=== PATIENT | male | born 1950 | race Caucasian/White ===

== ENCOUNTER → 2017-05-30 | Outpatient (CLI) | payer MEDICAID ==
[~2017-05-30] MED LIST: ALLP100T PO; ASP81TEC PO; ATEN25TA PO; CYCL10TA9 PO; FLUT1DIS26 IH; LISI5TAB PO; LOVA20TA2 PO; RT-ALBUTEROL SULF 2.5 MG/3 ML PRE-MIX VIAL INH ONE; RT-ALBUTEROL SULF 2.5 MG/3 ML PRE-MIX VIAL ONE
== END ==
LOC: RAD 11:02
PROVIDERS: ATTEND Internal Medicine Interventional Cardiology
DX: I25.10 Atherosclerotic heart disease of native coronary artery without angina pectoris (principal); I73.9 Peripheral vascular disease, unspecified; E11.9 Type 2 diabetes mellitus without complications; E78.5 Hyperlipidemia, unspecified; I10 Essential (primary) hypertension; R06.02 Shortness of breath; Z72.0 Tobacco use
CPT/HCPCS: 94060; 94726; 94729

== ENCOUNTER → 2017-06-21 | Outpatient (CLI) | payer MEDICAID ==
[~2017-06-21] MED LIST changes: +CATHETER FLUSH 10 ML SYR IV PRN; +REGADENOSON 0.4 MG/5 ML SYR (LEXISCAN) IV ONE; -RT-ALBUTEROL SULF 2.5 MG/3 ML PRE-MIX VIAL INH ONE; -RT-ALBUTEROL SULF 2.5 MG/3 ML PRE-MIX VIAL ONE
[2017-06-21 09:23] VITALS: BP 136/74
== END ==
LOC: CARD 08:03
PROVIDERS: ATTEND Internal Medicine Interventional Cardiology
DX: Z01.810 Encounter for preprocedural cardiovascular examination (principal); R07.89 Other chest pain; I25.10 Atherosclerotic heart disease of native coronary artery without angina pectoris; E11.9 Type 2 diabetes mellitus without complications; E78.5 Hyperlipidemia, unspecified; I10 Essential (primary) hypertension; R06.02 Shortness of breath; Z72.0 Tobacco use
CPT/HCPCS: 78452; 93017

== ENCOUNTER 2017-07-05 09:47 | Day surgery (SDC) | payer MEDICAID ==
[~2017-07-05] VITALS: Ht 160 cm; Wt 118.0 kg
[2017-07-05] VITALS (7 sets, daily range): BP systolic 94–122; BP diastolic 56–79
[~2017-07-05 09:47] MED LIST changes: -CATHETER FLUSH 10 ML SYR IV PRN; -REGADENOSON 0.4 MG/5 ML SYR (LEXISCAN) IV ONE
[2017-07-05] MEDS ORDERED: HEParin (CATH LAB) 2,000 ML IV ONE (09:53)
[2017-07-05] MEDS ORDERED: NS IV 1000 ML 1,000 ML ONE (09:53)
[2017-07-05] MEDS ORDERED: NS IV 1000 ML 1,000 ML IV SCH ×2 (10:00→12:45)
[2017-07-05 10:23] LABS: HEMOGLOBIN 17.1 G/DL (13.3-17.7); MEAN PLATELET VOLUME 11.4 FL (7.4-10.4); RED BLOOD COUNT 5.78 10^6/uL (4.35-5.85); RED CELL DISTRIBUTION WIDTH 13.6 % (10.0-14.5); WHITE BLOOD COUNT 9.2 10^3/uL (4.3-11.0)
[2017-07-05 10:33] LABS: INR 0.9 (0.8-1.4); PROTHROMBIN TIME PATIENT 12.6 SEC (12.2-14.7)
--- NOTE | 2017-07-05 10:35 | Cardiac Procedure Note-CS/ASA ---
Pre-Procedure Note Pre-Op Procedure Note H&P Reviewed The H&P was reviewed, patient examined and no changes noted. Date H&P Reviewed: Jul 05, 2017 Time H&P Reviewed: 10:35 Conscious Sedation Pre-Proced Time Reviewed: 10:35 ASA Class: 3 Airway Mallampati Classification: ([place] appropriate class) I. II. III, IV Lungs Heart ASA score ASA 1: a normal healthy patient ASA 2: a patient with a mild systemic disease (mid diabetes, controlled hypertension, obesity ASA 3: a patient with a severe systemic disease that limits activity (angina , COPD, prior Myocardial infarction) ASA 4: a patient with an incapacitating disease that is a constant threat to life (CHF, renal failure) ASA 5: a moribund patient not expected to survive 24 hrs. (ruptured aneurysm) ASA 6: a declared brain patient whose organs are being harvested. For emergent operations, add the letter E after the classification Grade 1 Sedation Plan: Analgesia, Amnesia, Plan communicated to team members, Discussed options with patient/fam, Discussed risks with patient/fam Note The patient is an appropriate candidate to undergo the planned procedure, sedation, and anesthesia. The patient immediately re-assessed prior to indication. Pablo COLLIER MD Jul 05, 2017 10:35 am
[2017-07-05 10:42] LABS: ALANINE AMINOTRANSFERASE 27 U/L (0-55); ALBUMIN 4.6 GM/DL (3.2-4.5); ALKALINE PHOSPHATASE 96 U/L (40-136); BILIRUBIN,TOTAL 0.6 MG/DL (0.1-1.0); BUN/CREATININE RATIO 18; CALCIUM 9.7 MG/DL (8.5-10.1); CARBON DIOXIDE 28 MMOL/L (21-32); CHLORIDE 98 MMOL/L (98-107); CREATININE SERUM 0.85 MG/DL (0.60-1.30); GFR ESTIMATED > 60; GLUCOSE 245 MG/DL (70-105); POTASSIUM 4.5 MMOL/L (3.6-5.0); SODIUM 135 MMOL/L (135-145)
[2017-07-05] MEDS ORDERED: INFLUENZA TRIvalent 2017-2018 0.5 ML/45 MCG SYR IM ONE (10:45)
[2017-07-05] MEDS ORDERED: LIDOCAINE 1% INJ 50 ML (XYLOCAINE) VIAL ONE (11:15)
[2017-07-05] MEDS ORDERED: MIDAZOLAM 5 MG/5 ML (VERSED) VIAL ONE (11:20)
[2017-07-05] MEDS ORDERED: fentaNYL INJECTION 100 MCG/2 ML AMP ONE (11:20)
[2017-07-05] MEDS ORDERED: HEParin 1000 UNIT/ML (10ML VIAL) FOR BOLUS ONE (11:52)
[2017-07-05] MEDS ORDERED: ADENOSINE 3 MG/1 ML (ADENOSCAN) 30ML VIAL IV ONE (11:53)
[2017-07-05] MEDS ORDERED: METO100T12 PO (11:53)
[2017-07-05] MEDS ORDERED: METF500T4 PO (11:54)
[2017-07-05] MEDS ORDERED: BUPR-168 PO (11:54)
[2017-07-05] MEDS ORDERED: OMEP20TA7 PO (11:55)
[2017-07-05] MEDS ORDERED: SIMV40TA4 PO (11:55)
[2017-07-05] MEDS ORDERED: LORA10TA7 PO (11:56)
[2017-07-05] MEDS ORDERED: LISI40TA PO (11:57)
--- NOTE | 2017-07-05 12:44 | Coronary Angiography Report ---
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 HISTORY: this is a 67-year-old gentleman with history of diabetes who presents with chest pain. Nuclear stress test showed evidence of inferior ischemia.Therefore, the patient was scheduled for coronary angiography. PROCEDURES PERFORMED: 1.Coronary angiography. 2.Left heart catheterization. 3. Aortic arch angiography. 4. FFR of ostial LAD. COMPLICATIONS: None. SPECIMENS: None. ESTIMATED BLOOD LOSS: 10 mL ANESTHESIA: Conscious sedation ANTICOAGULATION: IV heparin CONTRAST: 175 mL. FLUOROSCOPY: 8.8 minutes. FLOUROSCOPY DOSE: 1182 mgy. PROCEDURE DETAILS: The patient is a 67 male and was brought to the cardiac catheterization technologist after informed consent was taken. All the risks and complications were explained in detail; this included the risk of bleeding, vascular damage, stroke , GA and even . The patient was draped and prepped in the usual sterile fashion. abnormal Riley's test and therefore Access was gained in the right femoral artery with a 5 Azeri sheath. Coronary angiography and left heart catheterization was performed with the JR4, JL4, pigtail catheter. Aortic arch angiography was performed with a pigtail catheter. FINDINGS: 1.Left main: patent. 2.LAD: moderate ostial LAD stenosis. Stenosis severity 40-50 percent. Transapical vessel. 3.Left circumflex artery: patent. 4.RCA: chronic total occlusion of mid RCA with distal reconstitution. Long occlusive segment. Right to right and [id number] collaterals. 5.Left heart catheterization: aortic pressure 97/63 mmHg. LV pressure 67/16 mmHg. LVEDP 15 mmHg. Normal LV function with no wall motion abnormalities. There is no gradient across the aortic valve. 6. Aortic arch angiography: No evidence of aneurysm or dissection. Normal proximal segments of the great arteries included brachiocephalic artery, left common carotid artery and left subclavian artery. Recommendations: FFR of the ostial LAD is recommended. FFR details: We used the same diagnostic catheter JL4 5 Azeri, IV heparin for anticoagulation and pressure wire. The lesion in the ostium of the LAD was easily crossed with a pressure wire. Adenosine was started at 140 g per KG per minute. Lowest FFR was 0.94. This was done twice. This is normal therefore no intervention is required. The wire was taken out and post angiography showed no vascular complication. Patient tolerated the procedure well and did not have any complication. 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 Moderate ostial LAD stenosis which is negative by FFR. Secondary prevention measures for CAD. I will discuss with the patient about CRYSTAL ATTACHER PCI. Keira Karimi MD, FACP, FACC, [facility] Interventional Cardiology Pablo KARIMI MD Jul 05, 2017 12:44 pm
[2017-07-05] MEDS ORDERED: PATIENT MAY USE OWN MEDS, ALL PO SCH (12:45)
--- NOTE | 2017-07-05 12:48 | Discharge Inst-Post CATH ---
Discharge Inst-CATH Post Cardiac Cath D/C Inst Follow Up/Plan Dr Karimi in 2 weeks CARDIAC CATH DISCHARGE INSTRUCTIONS *Hold Metformin for 48 hours post heart cath. ACTIVITY * Go Home directly and rest. * Limit activity of the leg (or wrist if it was used) for 7 days including aerobics, swimming, jogging, bicycling, etc. * Restrict stair-climbing for 7 days if possible, if not, climb up with your non -cath leg, then bring together on the same step. * Avoid lifting, pushing, pulling or excessive movement of the affected extremity for 7 days. * Customary sexual activity may be resumed after 2 days-use caution not to use a position that strains or causes pain to the affected extremity. * No driving for 24 hours. * NO SMOKING. * Avoid straining for bowel movements for 7 days. * Gentle walking on level ground is allowed. * Returning to work will depend on the type of procedure and the results. Your doctor will discuss this with you. CALL YOUR DOCTOR FOR ANY OF THE FOLLOWING: *If bleeding from the puncture site occurs- Apply gentle pressure to site with clean cloth and call your doctor or EMS. * If a knot or lump forms under the skin, increases in size, or causes pain. * If bruising appears to be worsening or moving further down your leg instead of disappearing. * Temperature above 101 F. CARE OF YOUR GROIN INCISION; * Bruising or purple discoloration of the skin near the puncture site is common. * You may shower only, no bathtub bathing for 5 days. Be careful to avoid slipping as your leg may feel stiff. * If a closure device was used on your femoral artery, please see the attached guide regarding care of the device and your leg. * REMOVE the dressing from your groin the next day after your procedure in the shower. CARE OF YOUR WRIST INCISION; * Bruising or purple discoloration of the skin near the puncture site is common. * You may shower. * DO NOT submerge wrist. * Remove dressing in 24 hours. Pablo KARIMI MD Jul 05, 2017 12:48 pm
--- NOTE | 2017-07-05 12:58 | Cardiology Discharge Summary ---
Diagnosis/Chief Complaint Date of Admission 07/05/2017 Date of Discharge 07/05/2017 Admission Diagnosis Chest pain, abnormal nuclear stress test. Final/Discharge Diagnosis chronic total occlusion of mid RCA, moderate ostial LAD disease. Chief Complaint/HPI Chief Complaint/HPI this is a 67-year-old gentleman with history of diabetes, CAD who presented with chest pain. Nuclear stress test showed evidence of inferior ischemia. Coronary angiography was recommended. 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 Moderate ostial LAD stenosis which was negative by FFR. Discharge Physical Examination normal cardiovascular and respiratory examination. Hospital Course unremarkable Pending Labs Laboratory Tests 07/05/17 10:15: White Blood Count 9.2, Red Blood Count 5.78, Hemoglobin 17.1, Hematocrit 50, Mean Corpuscular Volume 87, Mean Corpuscular Hemoglobin 30, Mean Corpuscular Hemoglobin Concent 34, Red Cell Distribution Width 13.6, Platelet Count 243, Mean Platelet Volume 11.4, Prothrombin Time 12.6, INR Comment 0.9, Activated Partial Thromboplast Time 29, Sodium Level 135, Potassium Level 4.5, Chloride Level 98, Carbon Dioxide Level 28, Anion Gap 9, Blood Urea Nitrogen 15, Creatinine 0.85, Estimat Glomerular Filtration Rate > 60, BUN/Creatinine Ratio 18, Glucose Level 245, Calcium Level 9.7, Total Bilirubin 0.6, Aspartate Amino Transf (AST/SGOT) 18, Alanine Aminotransferase (ALT/SGPT) 27, Alkaline Phosphatase 96, Total Protein 8.0, Albumin 4.6 Discussion & Recommendations Discussion discharge instructions were given to the patient and family. I discussed at length with the patient about results of coronary angiogram. We will discuss about the need of TRIPE COOKER PCI. If required, he will be referred to Dr. Morse at [facility]. Follow up appt.: Dr. Karimi in 2 weeks. Dicharge Diet: Cardiac Diet Activity as Tolerated: Yes Home Medications Reviewed patient Home Medication Reconciliation performed by pharmacy medication reconciliations studio technician and/or nursing. Patients Allergies have been reviewed. Discharge Home Medications: Reviewed and agree with Discharge Medication list on patient's Discharge Instruction sheet Condition at discharge stable. Instructions to patient/family Dr Karimi in 2 weeks Pablo KARIMI MD Jul 05, 2017 12:58 pm
[2017-07-06] MEDS ORDERED: ASPIRIN E.C. 81 MG (ECOTRIN) TAB PO SCH (09:00)
== END 2017-07-05 15:00 | disposition home or self-care (01) ==
LOC: CATH 09:47 → SURG 12:47 → CATH 15:00
PROVIDERS: ATTEND Internal Medicine Interventional Cardiology
DX: I25.10 Atherosclerotic heart disease of native coronary artery without angina pectoris (principal); I25.82 Chronic total occlusion of coronary artery; E11.9 Type 2 diabetes mellitus without complications; I10 Essential (primary) hypertension; E78.5 Hyperlipidemia, unspecified; J45.909 Unspecified asthma, uncomplicated; J44.9 Chronic obstructive pulmonary disease, unspecified; F17.210 Nicotine dependence, cigarettes, uncomplicated; Z79.82 Long term (current) use of aspirin; Z79.4 Long term (current) use of insulin; Z79.899 Other long term (current) drug therapy
CPT/HCPCS: 36221; 36415; 80053; 85027; 85610; 85730; 87081; 93458; 93571

== ENCOUNTER → 2018-06-06 | Outpatient (CLI) | payer MEDICAID ==
[~2018-06-06] MED LIST changes: +BUPR-168 PO; +LISI40TA PO; +LORA10TA7 PO; +METF-397 PO; +METO100T12 PO; +OMEP20TA7 PO; +SIMV40TA4 PO
== END ==
LOC: PREOP 05:40
PROVIDERS: ATTEND Surgery
DX: Z01.818 Encounter for other preprocedural examination (principal)

== ENCOUNTER 2018-06-12 08:41 | Day surgery (SDC) | payer MEDICAID ==
[~2018-06-12] VITALS: Ht 160 cm; Wt 118.0 kg
[2018-06-12] MEDS ORDERED: NS IV 500 ML 500 ML ONE ×2 (08:52→11:23)
--- OUTSIDE RECORDS SUMMARY | 2018-06-12 08:53 | XMS REPORT | Continuity of Care Document ---
Author Author [facility] Organization [facility] Address Unknown Phone Unavailable Allergies Active Description Code Type Severity Reaction Onset Reported/Identified Relationship to Patient Clinical Status Yes SULFAMETHOXAZOLE-TRIMETHOPRIM SULFAMETHOXAZOLE-TRI MODERATE Yes SULFAMETHOXAZOLE-TRIMETHOPRIM MODERATE OTHER Yes No Allergy Information Available [id number] Drug Allergy Unknown N/A 2011 Yes SULFA SULFA Unknown N/A 09/09/2015 Yes Sulfa (Sulfonamide Antibiotics) [id number] Drug Allergy Unknown N/A 2017 Medications Medication Packaging Start Date Stop Date Route Dosage Sig PROMETHAZINE VIAL INJ 25 MG/CC (PHENERGAN VIAL) MG 04/25/2016 04/25/2016 PRN ONCE MEPERIDINE SYRINGE INJ 50 MG/CC (DEMEROL SYRINGE) MG 04/25/2016 04/25/2016 PRN ONCE Problems Date Dx Coded Attending Type Code Diagnosis Diagnosed By 06/16/2011 Ot 272.4 HYPERLIPIDEMIA NEC/NOS 06/16/2011 Ot 278.00 OBESITY, NOS 06/16/2011 Ot 327.23 OBSTRUCTIVE SLEEP APNEA (ADULT) (PEDIATR 06/16/2011 Ot 401.9 HYPERTENSION NOS 06/16/2011 Ot 411.1 INTERMED CORONARY SYND 06/16/2011 Ot 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 06/16/2011 Ot V85.41 BODY MASS INDEX 40.0-44.9, ADULT 09/09/2015 SYD GASTON DO Ot F17.210 NICOTINE DEPENDENCE, CIGARETTES, UNCOMPL 09/09/2015 SYD GASTON DO Ot R42 DIZZINESS AND GIDDINESS 09/10/2015 SYD GASTON DO Ot F17.210 NICOTINE DEPENDENCE, CIGARETTES, UNCOMPL 09/10/2015 SYD GASTON DO Ot R42 DIZZINESS AND GIDDINESS 04/25/2016 Isacc Salas 959.2 OTHER AND UNSPECIFIED INJURY TO SHOULDER AND UPPER ARM 04/25/2016 Isacc Salas S46.201A UNSP INJURY OF MUSC/FASC/TEND PRT BICEPS, RIGHT ARM, INIT 05/05/2016 Jayson, Beryl A 724.5 BACKACHE, UNSPECIFIED 05/05/2016 Beryl Tyler 724.6 DISORDERS OF SACRUM 05/05/2016 Jayson, Beryl W 781.0 ABNORMAL INVOLUNTARY MOVEMENTS 05/05/2016 Jayson, Beryl Steward M53.3 SACROCOCCYGEAL DISORDERS, NOT ELSEWHERE CLASSIFIED 05/05/2016 Beryl Tyler M54.9 DORSALGIA, UNSPECIFIED 05/05/2016 Beryl Tyler M62.838 OTHER MUSCLE SPASM 12/21/2016 Jayson, Beryl Steward 682.3 CELLULITIS AND ABSCESS OF UPPER ARM AND FOREARM 12/21/2016 Jayson, Beryl W 912.4 INSECT BITE, NONVENOMOUS OF SHOULDER AND UPPER ARM, WITHOUT MENTION OF INFECTION 12/21/2016 Jayson, Beryl W L02.413 CUTANEOUS ABSCESS OF RIGHT UPPER LIMB 12/21/2016 Jayson, Beryl W S40.861A INSECT BITE (NONVENOMOUS) OF RIGHT UPPER ARM, INITIAL ENCOUNTER 12/21/2016 Beryl Tyler 682.3 CELLULITIS AND ABSCESS OF UPPER ARM AND FOREARM 12/21/2016 Jayson, Beryl W 912.4 INSECT BITE, NONVENOMOUS OF SHOULDER AND UPPER ARM, WITHOUT MENTION OF INFECTION 12/21/2016 Jayson, Beryl W L02.413 CUTANEOUS ABSCESS OF RIGHT UPPER LIMB 12/21/2016 Beryl Tyler S40.861A INSECT BITE (NONVENOMOUS) OF RIGHT UPPER ARM, INITIAL ENCOUNTER 04/18/2017 Beryl Tyler W 250.80 DIABETES MELLITUS WITH OTHER SPECIFIED MANIFESTATIONS, TYPE II OR UNSPECIFIED TYPE, NOT STATED UNCONTROLLED 04/18/2017 Beryl Tyler E11.65 TYPE 2 DIABETES MELLITUS WITH HYPERGLYCEMIA 04/18/2017 Jayson, Beryl W 250.80 DIABETES MELLITUS WITH OTHER SPECIFIED MANIFESTATIONS, TYPE II OR UNSPECIFIED TYPE, NOT STATED UNCONTROLLED 04/18/2017 Beryl Tyler W E11.65 TYPE 2 DIABETES MELLITUS WITH HYPERGLYCEMIA 04/18/2017 Beryl Tyler W 250.80 DIABETES MELLITUS WITH OTHER SPECIFIED MANIFESTATIONS, TYPE II OR UNSPECIFIED TYPE, NOT STATED UNCONTROLLED 04/18/2017 Tyler, Beryl W E11.65 TYPE 2 DIABETES MELLITUS WITH HYPERGLYCEMIA 04/18/2017 Tyler, RadhaYonu W 250.80 DIABETES MELLITUS WITH OTHER SPECIFIED MANIFESTATIONS, TYPE II OR UNSPECIFIED TYPE, NOT STATED UNCONTROLLED 04/18/2017 Tyler, Beryl W E11.65 TYPE 2 DIABETES MELLITUS WITH HYPERGLYCEMIA 04/27/2017 Tyler, RadhaYonu A 250.80 DIABETES MELLITUS WITH OTHER SPECIFIED MANIFESTATIONS, TYPE II OR UNSPECIFIED TYPE, NOT STATED UNCONTROLLED 04/27/2017, Beryl A E11.65 TYPE 2 DIABETES MELLITUS WITH HYPERGLYCEMIA 04/27/2017 Tyler, Radha-Bro A 250.80 DIABETES MELLITUS WITH OTHER SPECIFIED MANIFESTATIONS, TYPE II OR UNSPECIFIED TYPE, NOT STATED UNCONTROLLED 04/27/2017 Tyler, Beryl W 682.2 CELLULITIS AND ABSCESS OF TRUNK 04/27/2017 Tyler, Beryl W 911.4 INSECT BITE, NONVENOMOUS OF TRUNK, WITHOUT MENTION OF INFECTION 04/27/2017 Tyler, Beryl A E11.65 TYPE 2 DIABETES MELLITUS WITH HYPERGLYCEMIA 04/27/2017 Tyler, Beryl W L03.311 CELLULITIS OF ABDOMINAL WALL 04/27/2017 Tyler, Beryl Steward S30.861A INSECT BITE (NONVENOMOUS) OF ABDOMINAL WALL, INITIAL ENCOUNTER 04/27/2017 Sergio TylerBro A 250.80 DIABETES MELLITUS WITH OTHER SPECIFIED MANIFESTATIONS, TYPE II OR UNSPECIFIED TYPE, NOT STATED UNCONTROLLED 04/27/2017 Tyler, Beryl Steward 682.2 CELLULITIS AND ABSCESS OF TRUNK 04/27/2017 Tyler, Beryl W 911.4 INSECT BITE, NONVENOMOUS OF TRUNK, WITHOUT MENTION OF INFECTION 04/27/2017 Beryl Tyler E11.65 TYPE 2 DIABETES MELLITUS WITH HYPERGLYCEMIA 04/27/2017 Jayson, Beryl W L03.311 CELLULITIS OF ABDOMINAL WALL 04/27/2017 Beryl Tyler W S30.861A INSECT BITE (NONVENOMOUS) OF ABDOMINAL WALL, INITIAL ENCOUNTER 04/29/2017 Beryl Tyler W 719.46 PAIN IN JOINT INVOLVING LOWER LEG 04/29/2017 Jayson, Beryl W 844.1 SPRAIN OF MEDIAL COLLATERAL LIGAMENT OF KNEE 04/29/2017 Beryl Tyler W M25.562 PAIN IN LEFT KNEE 04/29/2017 Beryl Tyler W S83.412A SPRAIN OF MEDIAL COLLATERAL LIGAMENT OF LEFT KNEE, INITIAL ENCOUNTER 04/29/2017 Beryl Tyler W 719.46 PAIN IN JOINT INVOLVING LOWER LEG 04/29/2017 Jayson, Beryl W 844.1 SPRAIN OF MEDIAL COLLATERAL LIGAMENT OF KNEE 04/29/2017 Jayson, Beryl W M25.562 PAIN IN LEFT KNEE 04/29/2017 Beryl Tyler W S83.412A SPRAIN OF MEDIAL COLLATERAL LIGAMENT OF LEFT KNEE, INITIAL ENCOUNTER 05/07/2017 ANGELES ROMERO 844.1 SPRAIN OF MEDIAL COLLATERAL LIGAMENT OF KNEE 05/07/2017 ANGELES ROMERO S83.412A SPRAIN OF MEDIAL COLLATERAL LIGAMENT OF LEFT KNEE, INIT 06/11/2017 Pablo COLLIER MD Ot E11.9 TYPE 2 DIABETES MELLITUS WITHOUT COMPLIC 06/11/2017 Pablo COLLIER MD Ot E78.5 HYPERLIPIDEMIA, UNSPECIFIED 06/11/2017 Pablo COLLIER MD Ot I10 ESSENTIAL (PRIMARY) HYPERTENSION 06/11/2017 Pablo COLLIER MD Ot 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 06/11/2017 Pablo COLLIER MD Ot I73.9 PERIPHERAL VASCULAR DISEASE, UNSPECIFIED 06/11/2017 Pablo COLLIER MD Ot R06.02 SHORTNESS OF BREATH 06/11/2017 Pablo COLLIER MD Ot Z72.0 TOBACCO USE 06/12/2017 Pablo COLLIER MD Ot E11.9 TYPE 2 DIABETES MELLITUS WITHOUT COMPLIC 06/12/2017 Pablo COLLIER MD Ot E78.5 HYPERLIPIDEMIA, UNSPECIFIED 06/12/2017 Pablo COLLIER MD Ot I10 ESSENTIAL (PRIMARY) HYPERTENSION 06/12/2017 Pablo COLLIER MD Ot 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 06/12/2017 NANDO HERRERA, M JOANNA Ot I73.9 PERIPHERAL VASCULAR DISEASE, UNSPECIFIED 06/12/2017 Pablo COLLIER MD Ot R06.02 SHORTNESS OF BREATH 06/12/2017 Pablo COLLIER MD Ot Z72.0 TOBACCO USE 06/20/2017 NANDO HERRERA, Pablo MARSHALL Ot E11.9 TYPE 2 DIABETES MELLITUS WITHOUT COMPLIC 06/20/2017 NANDO HERRERA, Pablo MARSHALL Ot E78.5 HYPERLIPIDEMIA, UNSPECIFIED 06/20/2017 NANDO HERRERA, M JOANNA Ot I10 ESSENTIAL (PRIMARY) HYPERTENSION 06/20/2017 NANDO HERRERA, Pablo MARSHALL Ot 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 06/20/2017 Pablo COLLIER MD Ot I73.9 PERIPHERAL VASCULAR DISEASE, UNSPECIFIED 06/20/2017 Pablo COLLIER MD Ot R06.02 SHORTNESS OF BREATH 06/20/2017 Pablo COLLIER MD Ot Z72.0 TOBACCO USE 06/21/2017 Pablo COLLIER MD Ot E11.9 TYPE 2 DIABETES MELLITUS WITHOUT COMPLIC 06/21/2017 Pablo COLLIER MD Ot E78.5 HYPERLIPIDEMIA, UNSPECIFIED 06/21/2017 Pablo COLLIER MD Ot I10 ESSENTIAL (PRIMARY) HYPERTENSION 06/21/2017 NANDO HERRERA, Pablo MARSHALL Ot 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 06/21/2017 Pablo COLLIER MD Ot I73.9 PERIPHERAL VASCULAR DISEASE, UNSPECIFIED 06/21/2017 Pablo COLLIER MD Ot R06.02 SHORTNESS OF BREATH 06/21/2017 NANDO HERRERA M JOANNA Ot Z72.0 TOBACCO USE 07/05/2017 NANDO HERRERA, Pablo MARSHALL Ot E11.9 TYPE 2 DIABETES MELLITUS WITHOUT COMPLIC 07/05/2017 Pablo COLLIER MD Ot E78.5 HYPERLIPIDEMIA, UNSPECIFIED 07/05/2017 Pablo COLLIER MD Ot F17.210 NICOTINE DEPENDENCE, CIGARETTES, UNCOMPL 07/05/2017 Pablo COLLIER MD Ot I10 ESSENTIAL (PRIMARY) HYPERTENSION 07/05/2017 Pablo COLLIER MD Ot 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 07/05/2017 Pablo COLLIER MD Ot 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 07/05/2017 Pablo COLLIER MD Ot J44.9 CHRONIC OBSTRUCTIVE PULMONARY DISEASE, U 07/05/2017 Pablo COLLIER MD Ot J45.909 UNSPECIFIED ASTHMA, UNCOMPLICATED 07/05/2017 Pablo COLLIER MD Ot Z79.4 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 OPERATOR (CURRENT) USE OF INSULIN 07/05/2017 Pablo COLLIER MD Ot Z79.82 [facility] (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 07/05/2017 Pablo COLLIER MD Ot Z79.899 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 THERAPY 07/06/2017 Pablo COLLIER MD Ot E11.9 TYPE 2 DIABETES MELLITUS WITHOUT COMPLIC 07/06/2017 Pablo COLLIER MD Ot E78.5 HYPERLIPIDEMIA, UNSPECIFIED 07/06/2017 Pablo COLLIER MD Ot F17.210 NICOTINE DEPENDENCE, CIGARETTES, UNCOMPL 07/06/2017 Pablo COLLIER MD Ot I10 ESSENTIAL (PRIMARY) HYPERTENSION 07/06/2017 Pablo COLLIER MD Ot 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 07/06/2017 Pablo COLLIER MD Ot 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 07/06/2017 Pablo COLLIER MD Ot J44.9 CHRONIC OBSTRUCTIVE PULMONARY DISEASE, U 07/06/2017 Pablo COLLIER MD Ot J45.909 UNSPECIFIED ASTHMA, UNCOMPLICATED 07/06/2017 Pablo COLLIER MD Ot Z79.4 [facility] (CURRENT) USE OF INSULIN 07/06/2017 Pablo COLLIER MD Ot Z79.82 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 (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 07/06/2017 Pablo COLLIER MD Ot Z79.899 OTHER [facility] (CURRENT) DRUG THERAPY 07/06/2017 Pablo COLLIER MD Ot E11.9 TYPE 2 DIABETES MELLITUS WITHOUT COMPLIC 07/06/2017 Pablo COLLIER MD, Ot E78.5 HYPERLIPIDEMIA, UNSPECIFIED 07/06/2017 Pablo COLLIER MD Ot F17.210 NICOTINE DEPENDENCE, CIGARETTES, UNCOMPL 07/06/2017 Pablo COLLIER MD, Ot I10 ESSENTIAL (PRIMARY) HYPERTENSION 07/06/2017 Pablo COLLIER MD, Ot 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 07/06/2017 Pablo COLLIER MD, Ot 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 07/06/2017 Pablo COLLIER MD, Ot J44.9 CHRONIC OBSTRUCTIVE PULMONARY DISEASE, U 07/06/2017 Pablo COLLIER MD, Ot J45.909 UNSPECIFIED ASTHMA, UNCOMPLICATED 07/06/2017 Pablo COLLIER MD, Ot Z79.4 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 (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) USE OF INSULIN 07/06/2017 Pablo COLLIER MD Ot Z79.82 [facility] (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 07/06/2017 Pablo COLLIER MD, Ot Z79.899 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 THERAPY 09/12/2017 Beryl Tyler W 682.1 CELLULITIS AND ABSCESS OF NECK 09/12/2017 Beryl Tyler W L02.11 CUTANEOUS ABSCESS OF NECK 09/12/2017 Beryl Tyler W 682.1 CELLULITIS AND ABSCESS OF NECK 09/12/2017 Beryl Tyler W L02.11 CUTANEOUS ABSCESS OF NECK 09/12/2017 Beryl Tyler W 682.1 CELLULITIS AND ABSCESS OF NECK 09/12/2017 Beryl Tyler W L02.11 CUTANEOUS ABSCESS OF NECK 09/25/2017 Beryl Tyler W 250.80 DIABETES MELLITUS WITH OTHER SPECIFIED MANIFESTATIONS, TYPE II OR UNSPECIFIED TYPE, NOT STATED UNCONTROLLED 09/25/2017 Beryl Tyler W 726.64 PATELLAR TENDINITIS 09/25/2017 Tyler, Radha-Bro W E11.65 TYPE 2 DIABETES MELLITUS WITH HYPERGLYCEMIA 09/25/2017 Tyler, Letiu W M76.52 PATELLAR TENDINITIS, LEFT KNEE 09/25/2017 Tyler, Letiu W S83.242D OTHER TEAR OF MEDIAL MENISCUS, CURRENT INJURY, LEFT KNEE, SUBSEQUENT ENCOUNTER 09/25/2017 Jayson, Letiu W V58.89 ENCOUNTER FOR OTHER SPECIFIED AFTERCARE 09/26/2017 Jayson, Radha-Bro W 250.80 DIABETES MELLITUS WITH OTHER SPECIFIED MANIFESTATIONS, TYPE II OR UNSPECIFIED TYPE, NOT STATED UNCONTROLLED 09/26/2017 Tyler, RadhaJacksonu W 726.64 PATELLAR TENDINITIS 09/26/2017 Tyler, Radha-Bro W E11.65 TYPE 2 DIABETES MELLITUS WITH HYPERGLYCEMIA 09/26/2017 Tyler, RadhaEnocBro W M76.52 PATELLAR TENDINITIS, LEFT KNEE 09/26/2017 Jayson, Letiu W S83.242D OTHER TEAR OF MEDIAL MENISCUS, CURRENT INJURY, LEFT KNEE, SUBSEQUENT ENCOUNTER 09/26/2017 Tyler, Radha-Bro W V58.89 ENCOUNTER FOR OTHER SPECIFIED AFTERCARE 12/19/2017 Tyler, Radha-Bro W 847.0 NECK SPRAIN 12/19/2017 Tyler, Radha-Bro W S16.1XXA STRAIN OF MUSCLE, FASCIA AND TENDON AT NECK LEVEL, INITIAL ENCOUNTER 12/19/2017 Tyler, Radha-Bro W 847.0 NECK SPRAIN 12/19/2017 Tyler, Radha-Bro W S16.1XXA STRAIN OF MUSCLE, FASCIA AND TENDON AT NECK LEVEL, INITIAL ENCOUNTER 02/20/2018 Tyler, RadhaHimanshu W 250.00 DIABETES MELLITUS WITHOUT MENTION OF COMPLICATION, TYPE II OR UNSPECIFIED TYPE, NOT STATED UNCONTROLLED 02/20/2018 Tyler, Letiu W 272.4 OTHER AND UNSPECIFIED HYPERLIPIDEMIA 02/20/2018 Tyler, Radha-Bro W 782.3 EDEMA 02/20/2018 Tyler, Letiu W 786.2 COUGH 02/20/2018 Tyler, Beryl W E11.9 TYPE 2 DIABETES MELLITUS WITHOUT COMPLICATIONS 02/20/2018 Tyler, Beryl W E78.5 HYPERLIPIDEMIA, UNSPECIFIED 02/20/2018 Tyler, Letiu W R05 COUGH 02/20/2018 Tyler, Radha-Bro W R60.0 LOCALIZED EDEMA 02/20/2018 Tyler, Radha-Bro W 250.00 DIABETES MELLITUS WITHOUT MENTION OF COMPLICATION, TYPE II OR UNSPECIFIED TYPE, NOT STATED UNCONTROLLED 02/20/2018 Tyler, Radha-Bro W 272.4 OTHER AND UNSPECIFIED HYPERLIPIDEMIA 02/20/2018 Tyler, Radha-Bro W 782.3 EDEMA 02/20/2018 Tyler, Radha-Bro W 786.2 COUGH 02/20/2018 Tyler, Radha-Bro W E11.9 TYPE 2 DIABETES MELLITUS WITHOUT COMPLICATIONS 02/20/2018 Tyler, Radha-Bro W E78.5 HYPERLIPIDEMIA, UNSPECIFIED 02/20/2018 Tyler, Radha-Bro W R05 COUGH 02/20/2018 Tyler, Radha-Bro W R60.0 LOCALIZED EDEMA 04/19/2018 Tyler, Radha-Bro W 550.91 RECURRENT UNILATERAL OR UNSPECIFIED INGUINAL HERNIA, WITHOUT MENTION OF OBSTRUCTION OR GANGRENE 04/19/2018 Tyler, Radha-Bro W K40.91 UNILATERAL INGUINAL HERNIA, WITHOUT OBSTRUCTION OR GANGRENE, RECURRENT 04/19/2018 Tyler, Radha-Bro W 550.91 RECURRENT UNILATERAL OR UNSPECIFIED INGUINAL HERNIA, WITHOUT MENTION OF OBSTRUCTION OR GANGRENE 04/19/2018 Tyler, Radha-Bro W K40.91 UNILATERAL INGUINAL HERNIA, WITHOUT OBSTRUCTION OR GANGRENE, RECURRENT 05/22/2018 Tyler, Radha-Bro W 250.00 DIABETES MELLITUS WITHOUT MENTION OF COMPLICATION, TYPE II OR UNSPECIFIED TYPE, NOT STATED UNCONTROLLED 05/22/2018 Tyler, Radha-Bro W 466.0 ACUTE BRONCHITIS 05/22/2018 Tyler, Radha-Bro W 724.2 LUMBAGO 05/22/2018 Tyler, Radha-Bro W 724.8 OTHER SYMPTOMS REFERABLE TO BACK 05/22/2018 Tyler, Radha-Bro W E11.9 TYPE 2 DIABETES MELLITUS WITHOUT COMPLICATIONS 05/22/2018 Tyler, Radha-Bro W J20.9 ACUTE BRONCHITIS, UNSPECIFIED 05/22/2018 Tyler, Radha-Bro W M54.5 LOW BACK PAIN 05/22/2018 Tyler, Radha-Bro W M62.830 MUSCLE SPASM OF BACK 05/23/2018 Tyler, Radha-Bro W 250.00 DIABETES MELLITUS WITHOUT MENTION OF COMPLICATION, TYPE II OR UNSPECIFIED TYPE, NOT STATED UNCONTROLLED 05/23/2018 Tyler, Radha-Bro W 466.0 ACUTE BRONCHITIS 05/23/2018 Tyler, Letiu W 724.2 LUMBAGO 05/23/2018 Tyler, Radha-Bro W 724.8 OTHER SYMPTOMS REFERABLE TO BACK 05/23/2018 Tyler, Letiu W E11.9 TYPE 2 DIABETES MELLITUS WITHOUT COMPLICATIONS 05/23/2018 Tyler, Letiu W J20.9 ACUTE BRONCHITIS, UNSPECIFIED 05/23/2018 Tyler, Letiu W M54.5 LOW BACK PAIN 05/23/2018 Tyler, Radha-Bro W M62.830 MUSCLE SPASM OF BACK 06/04/2018 Tyler, Radha-Bro W 250.80 DIABETES MELLITUS WITH OTHER SPECIFIED MANIFESTATIONS, TYPE II OR UNSPECIFIED TYPE, NOT STATED UNCONTROLLED 06/04/2018, Radha-Bro W 787.20 DYSPHAGIA, UNSPECIFIED 06/04/2018 Tyler, Letiu W E11.65 TYPE 2 DIABETES MELLITUS WITH HYPERGLYCEMIA 06/04/2018 Tyler, Letiu W R13.10 DYSPHAGIA, UNSPECIFIED 06/04/2018, Radha-Bro W 250.80 DIABETES MELLITUS WITH OTHER SPECIFIED MANIFESTATIONS, TYPE II OR UNSPECIFIED TYPE, NOT STATED UNCONTROLLED 06/04/2018, Letiu W 787.20 DYSPHAGIA, UNSPECIFIED 06/04/2018, Radha-Bro W E11.65 TYPE 2 DIABETES MELLITUS WITH HYPERGLYCEMIA 06/04/2018 Tyler, Letiu W R13.10 DYSPHAGIA, UNSPECIFIED 06/06/2018 NANDO HERRERA, M JOANNA Ot E11.9 TYPE 2 DIABETES MELLITUS WITHOUT COMPLIC 06/06/2018 NANDO HERRERA, M JOANNA Ot E78.5 HYPERLIPIDEMIA, UNSPECIFIED 06/06/2018 NANDO HERRERA M JOANNA Ot I10 ESSENTIAL (PRIMARY) HYPERTENSION 06/06/2018 NANDO HERRERA M JOANNA Odell 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 06/06/2018 Pablo COLLIER MD Ot R06.02 SHORTNESS OF BREATH 06/06/2018 Pablo COLLIER MD, Ot R07.89 OTHER CHEST PAIN 06/06/2018 Pablo COLLIER MD Ot Z01.810 ENCOUNTER FOR PREPROCEDURAL CARDIOVASCUL 06/06/2018 Pablo COLLIER MD Ot Z72.0 TOBACCO USE 06/06/2018 Pablo COLLIER MD Ot E11.9 TYPE 2 DIABETES MELLITUS WITHOUT COMPLIC 06/06/2018 Pablo COLLIER MD Ot E78.5 HYPERLIPIDEMIA, UNSPECIFIED 06/06/2018 Pablo COLLIER MD Ot I10 ESSENTIAL (PRIMARY) HYPERTENSION 06/06/2018 Pablo COLLIER MD Ot 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 06/06/2018 Pablo COLLIER MD Ot I73.9 PERIPHERAL VASCULAR DISEASE, UNSPECIFIED 06/06/2018 Pablo COLLIER MD Ot R06.02 SHORTNESS OF BREATH 06/06/2018 Pablo COLLIER MD Ot Z72.0 TOBACCO USE 06/07/2018 MILIND SORIANO MD Ot Z01.818 ENCOUNTER FOR OTHER PREPROCEDURAL EXAMIN Procedures Code Description Performed By Performed On 37.22 06/16/2011 88.42 06/16/2011 88.53 06/16/2011 88.56 06/16/2011 Results Test Result Range Hemoglobin A1C - 04/18/16 12:09 % A1C 8.40 % 5.40-6.60 AvGlu 220 mg/dL 70-110 Hemoglobin A1C - 06/01/16 08:40 % A1C 7.50 % 5.40-6.60 AvGlu 188 mg/dL 70-110 Microalb/Creat - 06/01/16 08:40 Microalb <5.0 mg/L 0.0-20.0 UMicroalb/UCreat 33.58 mg/g 0.00-100.00 Urine Creatinine 14.9 mg/dl 0.0-50.0 Hemoglobin A1C - 10/19/16 17:35 % A1C 8.30 % 5.40-6.60 AvGlu 218 mg/dL 70-110 Other Culture - 12/21/16 19:44 PRELIM CULTURE RESULTS Abundant Gram Positive - ASHLEY / ID to Follow FINAL CULTURE RESULTS Abundant Methicillin Resistant Staphylococcus aureus MEDIA PLATED Setup at 19:54 on 12/21/2016 Sensi - 12/21/16 19:44 FINAL CULTURE RESULTS Methicillin Resistant Staphylococcus aureus ( Isolate 1) Ampicillin/Sulbactam <=8/4 Ampicillin >8 Amoxicillin/K Clavulanate >4/2 Ceftriaxone <=8 Clindamycin <=0.5 Cefoxitin Screen >4 Ciprofloxacin <=1 Daptomycin <=0.5 Erythromycin <=0.5 Nitrofurantoin <=32 Gentamicin <=4 Gentamicin Synergy Screen N/R Inducible Clindamycin N/R Levofloxacin <=1 Linezolid 2 Moxifloxacin <=0.5 Oxacillin >2 Penicillin >8 Rifampin <=1 Streptomycin Synergy N/R Synercid <=0.5 Trimethoprim/ Sulfamethoxazole <=0.5/9.5 Tetracycline <=4 Vancomycin 1 Hemoglobin A1C - 04/18/17 15:15 % A1C 9.20 % 5.40-6.60 AvGlu 252 mg/dL 70-110 Other Culture - 04/27/17 13:43 PRELIM CULTURE RESULTS Abundant Staphylococcus Aureus. Susceptibility to follow. MEDIA PLATED Setup at 15:34 on 04/27/2017 Other Culture - 04/27/17 13:43 PRELIM CULTURE RESULTS Abundant Staphylococcus Aureus. Susceptibility to follow. FINAL CULTURE RESULTS Abundant Methicillin Resistant Staphylococcus aureus. MEDIA PLATED Setup at 15:34 on 04/27/2017 Sensi - 04/27/17 13:43 FINAL CULTURE RESULTS Methicillin Resistant Staphylococcus aureus ( Isolate 1) Ampicillin/Sulbactam <=8/4 Ampicillin >8 Amoxicillin/K Clavulanate >4/2 Ceftriaxone 32 Clindamycin <=0.5 Cefoxitin Screen >4 Ciprofloxacin <=1 Daptomycin 1 Erythromycin <=0.5 Nitrofurantoin <=32 Gentamicin <=4 Gentamicin Synergy Screen N/R Inducible Clindamycin N/R Levofloxacin <=1 Linezolid 4 Moxifloxacin <=0.5 Oxacillin >2 Penicillin >8 Rifampin <=1 Streptomycin Synergy N/R Synercid <=0.5 Trimethoprim/ Sulfamethoxazole <=0.5/9.5 Tetracycline <=4 Vancomycin 2 EKG - 05/07/17 11:18 EKG Complete Comprehensive Metabolic Panel - 05/07/17 11:18 Albumin 4.4 g/dL 3.6-5.1 ALP 104 U/L 35-130 ALT 28 U/L 6-45 Anion Gap 14 6-14 AST 16 U/L 2-40 BUN 13 mg/dL 5-25 Calcium 9.5 mg/dL 8.3-10.4 Chloride 100 mmol/L 95-114 CO2 27 mEq/L 22-33 Creat 0.84 mg/dL 0.50-1.50 eGFR 92 mL/min/1.73m2 >59 Globulin 2.9 g/dL 2.3-3.5 Glucose 211 mg/dL 70-110 Osmo 289 280-295 Potassium 4.3 mmol/L 3.5-5.3 Sodium 137 mmol/L 134-148 TBil 0.4 mg/dL 0.2-1.2 TP 7.3 g/dL 6.0-8.3 MRSA Screen - 05/07/17 11:18 FINAL CULTURE RESULTS MRSA Negative Nasal Culture MEDIA PLATED Setup at 11:53 on 05/07/2017 Automated blood complete blood count (hemogram) panel - 07/05/17 10:15 Blood leukocytes automated count (number/volume) 9.2 10*3/uL 4.3-11.0 Blood erythrocytes automated count (number/volume) 5.78 10*6/uL 4.35-5.85 Venous blood hemoglobin measurement (mass/volume) 17.1 g/dL 13.3-17.7 Blood hematocrit (volume fraction) 50 % 40-54 Automated erythrocyte mean corpuscular volume 87 [foz_us] 80-99 Automated erythrocyte mean corpuscular hemoglobin (mass per erythrocyte) 30 pg 25-34 Automated erythrocyte mean corpuscular hemoglobin concentration measurement ( mass/volume) 34 g/dL 32-36 Automated erythrocyte distribution width ratio 13.6 % 10.0-14.5 Automated blood platelet count (count/volume) 243 10*3/uL 130-400 Automated blood platelet mean volume measurement 11.4 [foz_us] 7.4-10.4 Comprehensive metabolic panel - 07/05/17 10:15 Serum or plasma sodium measurement (moles/volume) 135 mmol/L 135-145 Serum or plasma potassium measurement (moles/volume) 4.5 mmol/L 3.6-5.0 Serum or plasma chloride measurement (moles/volume) 98 mmol/L 98-107 Carbon dioxide 28 mmol/L 21-32 Serum or plasma anion gap determination (moles/volume) 9 mmol/L 5-14 Serum or plasma urea nitrogen measurement (mass/volume) 15 mg/dL 7-18 Serum or plasma creatinine measurement (mass/volume) 0.85 mg/dL 0.60-1.30 Serum or plasma urea nitrogen/creatinine mass ratio 18 NRG Serum or plasma creatinine measurement with calculation of estimated glomerular filtration rate > NRG Serum or plasma glucose measurement (mass/volume) 245 mg/dL 70-105 Serum or plasma calcium measurement (mass/volume) 9.7 mg/dL 8.5-10.1 Serum or plasma total bilirubin measurement (mass/volume) 0.6 mg/dL 0.1-1.0 Serum or plasma alkaline phosphatase measurement (enzymatic activity/volume) 96 U/L 40-136 Serum or plasma aspartate aminotransferase measurement (enzymatic activity/ volume) 18 U/L 5-34 Serum or plasma alanine aminotransferase measurement (enzymatic activity/volume ) 27 U/L 0-55 Serum or plasma protein measurement (mass/volume) 8.0 g/dL 6.4-8.2 Serum or plasma albumin measurement (mass/volume) 4.6 g/dL 3.2-4.5 PT panel in platelet poor plasma by coagulation assay - 07/05/17 10:15 Prothrombin time (PT) in platelet poor plasma by coagulation assay 12.6 s 12.2-14.7 INR in platelet poor plasma or blood by coagulation assay 0.9 0.8-1.4 Activated partial thromboplastin time (aPTT) in platelet poor plasma bycoagulation assay - 07/05/17 10:15 Activated partial thromboplastin time (aPTT) in platelet poor plasma bycoagulation assay 29 s 24-35 Methicillin resistant Staphylococcus aureus (MRSA) screening culture - 10:15 MRSA SCREEN RESULT MRSA ISOLATED NRG Other Culture - 09/12/17 15:36 PRELIM CULTURE RESULTS Abundant Gram Positive - Coag Positive Staph - ASHLEY / ID to Follow MEDIA PLATED Setup at 16:16 on 09/12/2017 [facility] - 09/12/17 15:36 FINAL CULTURE RESULTS Methicillin Resistant Staphylococcus aureus ( Isolate 1) Ampicillin/Sulbactam <=8/4 Ampicillin >8 Amoxicillin/K Clavulanate >4/2 Ceftriaxone <=8 Clindamycin <=0.5 Cefoxitin Screen >4 Ciprofloxacin <=1 Daptomycin <=0.5 Erythromycin <=0.5 Nitrofurantoin <=32 Gentamicin <=4 Gentamicin Synergy Screen N/R Inducible Clindamycin N/R Levofloxacin <=1 Linezolid 2 Moxifloxacin <=0.5 Oxacillin >2 Penicillin >8 Rifampin <=1 Streptomycin Synergy N/R Synercid <=0.5 Trimethoprim/ Sulfamethoxazole <=0.5/9.5 Tetracycline <=4 Vancomycin 2 Comprehensive Metabolic Panel - 09/25/17 14:55 Albumin 4.5 g/dL 3.6-5.1 ALP 116 U/L 35-130 ALT 19 U/L 6-45 Anion Gap 21 6-14 AST 13 U/L 2-40 BUN 16 mg/dL 5-25 Calcium 9.8 mg/dL 8.3-10.4 Chloride 94 mmol/L 95-114 CO2 23 mEq/L 22-33 Creat 1.21 mg/dL 0.50-1.50 eGFR 60 mL/min/1.73m2 >59 Globulin 2.8 g/dL 2.3-3.5 Glucose 573 Result Verified by Repeat Analysis mg/dL 70- 110 Osmo 300 280-295 Potassium 5.1 mmol/L 3.5-5.3 Sodium 133 mmol/L 134-148 TBil 0.4 mg/dL 0.2-1.2 TP 7.3 g/dL 6.0-8.3 BNP - 02/19/18 14:00 BNP 11.60 pg/ml 0.00-100.00 BMP - 04/19/18 10:34 Anion Gap 16 6-14 BUN 13 mg/dL 5-25 Calcium 9.4 mg/dL 8.3-10.4 Chloride 97 mmol/L 95-114 CO2 30 mEq/L 22-33 Creat 0.84 mg/dL 0.50-1.50 eGFR 91 mL/min/1.73m2 >59 Glucose 191 mg/dL 70-110 Osmo 292 280-295 Potassium 4.4 mmol/L 3.5-5.3 Sodium 139 mmol/L 134-148 Urinalysis - 05/22/18 14:33 Icotest N/A Negative Urine Volume Urine Volume Sufficient (10mL) Urine-Appearance Clear Clear Urine-Bacteria Negative Urine-Bilirubin Negative Negative Urine-Blood Negative Negative Urine-Color Yellow Colorless-Lt. Yellow Urine-Epithelial Cells None Seen Urine-Glucose 3+ Negative Urine-Ketones Negative Negative Urine-Leukocytes Negative Negative Urine-Nitrite Negative Negative Urine-Other Urine Saved if Culture Needed (48hrs from time of collection) Urine-pH 6.5 5-8.5 Urine-Protein Negative Negative Urine-RBC Negative Urine-Specific [place] 1.010 1.000-1.030 Urine-WBC Negative Urobilinogen 0.2 E.U./dL 0.2-1.0 Encounters ACCT No. Visit Date/Time Discharge Status Pt. Type Provider Facility Loc./Unit Complaint [id number] 06/06/2018 05:40:00 06/06/2018 23:59:59 CLS Outpatient MILIND SORIANO MD [facility] PREOP EGD [id number] 07/05/2017 09:47:00 07/05/2017 15:00:00 DIS Outpatient Pablo COLLIER MD [facility] CATH SOB, ABNOMRAL STRESS TEST [id number] 06/21/2017 08:03:00 06/21/2017 23:59:59 CLS Outpatient Pablo COLLIER MD [facility] CARD R07.89 [id number] 05/30/2017 11:02:00 05/30/2017 23:59:59 CLS Outpatient Pablo COLLIER MD [facility] RAD R06.02 [id number] 05/18/2017 12:32:00 05/18/2017 23:59:59 CLS Preadmit Pablo COLLIER MD [facility] CARD I25.10,R06.02 [id number] 09/09/2015 12:03:00 09/09/2015 14:39:00 DIS Emergency SYD GASTON DO [facility] ER CONFUSION/DIZZINESS [id number] 06/12/2018 08:41:00 ACT Outpatient MILIND SORIANO MD [facility] ENDO DYSPHAGIA/COUGH [id number] 06/16/2011 08:42:00 Document Registration [id number] 06/04/2018 08:15:00 06/04/2018 23:59:00 DIS Outpatient Tyler, RadhaZaki [id number] 05/22/2018 14:32:00 05/22/2018 23:59:00 DIS Outpatient Tyler, SergioBro [id number] 04/19/2018 10:29:00 04/19/2018 23:59:00 DIS Outpatient Tyler, RadhaZaki [id number] 02/19/2018 14:00:00 02/19/2018 23:59:00 DIS Outpatient Tyler, RadhaZaki [id number] 12/19/2017 12:33:00 12/19/2017 23:59:00 DIS Outpatient Tyler, RadhaZaki [id number] 11/08/2017 10:26:00 11/08/2017 23:59:00 DIS Outpatient Tyler, RadhaZaki [id number] 09/25/2017 15:00:00 09/25/2017 23:59:00 DIS Outpatient Tyler, RadhaZaki [id number] 09/12/2017 15:36:00 09/12/2017 23:59:00 DIS Outpatient Tyler, SergioBro [id number] 05/17/2017 00:00:00 05/17/2017 23:59:00 DIS Outpatient HEATHER, ANGELES [id number] 05/07/2017 09:58:00 05/07/2017 23:59:00 DIS Outpatient HEATHER, ANGELES [id number] 05/07/2017 10:04:00 05/07/2017 10:52:00 DIS Outpatient HEATHER, ANGELES [id number] 04/29/2017 08:02:00 04/29/2017 23:59:00 DIS Outpatient Tyler, RadhaZaki [id number] 04/27/2017 13:42:00 04/27/2017 23:59:00 DIS Outpatient Tyler, RadhaZaki [id number] 04/18/2017 15:15:00 04/18/2017 23:59:00 DIS Outpatient Tyler, RadhaZaki [id number] 12/21/2016 19:43:00 12/21/2016 23:59:00 DIS Outpatient Tyler, RadhaHimanshu [id number] 10/19/2016 17:33:00 10/19/2016 23:59:00 DIS Outpatient Tyler, RadhaZaki [id number] 06/01/2016 08:40:00 06/01/2016 23:59:00 DIS Outpatient Beryl Tyler [id number] 03/27/2016 09:34:00 05/05/2016 10:05:00 DIS Outpatient Beryl Tyler [id number] 04/25/2016 11:14:00 04/25/2016 12:30:00 DIS Outpatient JosueIsacc [id number] 04/18/2016 12:04:00 04/18/2016 23:59:00 DIS Outpatient Beryl Tyler [id number] 04/25/2016 11:52:44 Document Registration [id number] 04/27/2017 13:42:00 Document Registration [id number] 05/07/2017 09:58:00 Document Registration [id number] 09/25/2017 15:00:00 Document Registration
[2018-06-12 09:00] VITALS: BP 135/54
[2018-06-12] MEDS: NS IV 500 ML 500 ML IV PRN ×2 (09:10→11:20)
[2018-06-12] MEDS ORDERED: LIDOCAINE JELLY 2% 6 ML SYRINGE MM PRN (09:15)
[2018-06-12] MEDS ORDERED: HURRICAINE EXT TUBE (BENZOCAINE) XX PRN (09:15)
[2018-06-12] MEDS ORDERED: MIDAZOLAM 2 MG/2 ML (VERSED) VIAL IVP ONE (09:15)
[2018-06-12] MEDS ORDERED: fentaNYL INJECTION 100 MCG/2 ML AMP IVP ONE (09:15)
[2018-06-12] MEDS ORDERED: HUMULOG SUBMUCOS (10:02)
[2018-06-12] MEDS ORDERED: INSU100V6 SQ (10:03)
[2018-06-12] MEDS ORDERED: TBR.3OP51 OP (10:06)
[2018-06-12] MEDS ORDERED: NITR2.5C15 PO (10:06)
[2018-06-12] MEDS ORDERED: DULA1.5P2 SQ (10:06)
[2018-06-12] MEDS ORDERED: TIOT18CA2 IH (10:07)
[2018-06-12] MEDS ORDERED: BUDE10.2 IH (10:08)
[2018-06-12] MEDS ORDERED: RT-ALBUINH INH (10:08)
--- NOTE | 2018-06-12 10:40 | Conscious Sedation/ASA ---
Conscious Sedation Pre-Proced Time 10:30 ASA Score 2 For ASA 3 and 4: Consider anesthesia and medical clearance. Also, for patients with a history of failed moderate sedation consider anesthesia. Airway Lungs Heart ASA score ASA 1: a normal healthy patient ASA 2: a patient with a mild systemic disease (mid diabetes, controlled hypertension, obesity ASA 3: a patient with a severe systemic disease that limits activity (angina , COPD, prior Myocardial infarction) ASA 4: a patient with an incapacitating disease that is a constant threat to life (CHF, renal failure) ASA 5: a moribund patient not expected to survive 24 hrs. (ruptured aneurysm) ASA 6: a declared brain- patient whose organs are being harvested. For emergent operations, add the letter E after the classification Mallampati Classification Grade 2 Sedation Plan Analgesia, Amnesia, Plan communicated to team members, Discussed options with patient/fam, Discussed risks with patient/fam The patient is an appropriate candidate to undergo the planned procedure, sedation, and anesthesia. The patient immediately re-assessed prior to indication. MILIND SORIANO MD Jun 12, 2018 10:40
--- NOTE | 2018-06-12 10:41 | Progress Note-Pre Operative ---
Pre-Operative Progress Note H&P Reviewed The H&P was reviewed, patient examined and no changes noted. Date Seen by Provider: Jun 12, 2018 Time Seen by Provider: 10:30 Date H&P Reviewed: Jun 12, 2018 Time H&P Reviewed: 10:30 Pre-Operative Diagnosis: GERD,dysphagia MILIND SORIANO MD Jun 12, 2018 10:41
[2018-06-12] MEDS ORDERED: PANT40TA2 PO (10:42)
--- NOTE | 2018-06-12 10:43 | Discharge Inst-Surgical ---
D/C Lap Instructions-KIDO New, Converted, or Re-Newed RX: RX on Chart Follow Up Appt in 6 weeks Activity as tolerated High Fiber Diet 25g or more per day Avoid Alcohol, Caffeine, Spicy [place] and Acid foods. Drink 64 fluid oz or more of fluids per day. Symptoms to Report: Fever over 101 degree F, Nausea/Vomiting If any problems/questions: Contact your physician or go to Emergency Room MILIND SORIANO MD Jun 12, 2018 10:43
[2018-06-12] MEDS ORDERED: ACETAMINOPHEN 325 MG TABLET PO PRN (10:45)
[2018-06-12] MEDS ORDERED: morphine INJ 10 MG/ML 1ML (SYR OR VIAL) IV PRN (10:45)
[2018-06-12] MEDS ORDERED: HYDROcodone/APAP 5 MG/325 MG (LORTAB) TAB PO PRN (10:45)
[2018-06-12] MEDS ORDERED: ONDANSETRON 4 MG/2 ML (SDV) Z0FRAN IV PRN (10:45)
[2018-06-12] MEDS ORDERED: MIDAZOLAM 2 MG/2 ML (VERSED) VIAL ONE ×4 (12:08→12:28)
[2018-06-12] MEDS ORDERED: LIDOCAINE JELLY 2% 6 ML SYRINGE ONE (12:08)
[2018-06-12] MEDS ORDERED: fentaNYL INJECTION 100 MCG/2 ML AMP ONE (12:08)
[2018-06-12] MEDS ORDERED: HURRICAINE EXT TUBE (BENZOCAINE) ONE (12:09)
[2018-06-12 13:10] VITALS: BP 127/72
[2018-06-12 13:40] VITALS: BP 150/87
[2018-06-12 14:00] VITALS: BP 150/87
--- NOTE | 2018-06-12 14:52 | Progress Note-Post Operative ---
Post-Operative Progess Note Surgeon (s)/Inspector Missile (s) Surgeon MILIND SORIANO MD Inspector Missile: none Pre-Operative Diagnosis GERD,dysphagia Post-Operative Diagnosis reflux esophagitis(stage 2), mild distal esophageal stricture, small HH(1.5cm), moderate gastritis. Procedure & Operative Findings Date of Procedure 06/12/18 Procedure Performed/Findings EGD with bx and balloon dilatation. Anesthesia Type cs Estimated Blood Loss Estimated blood loss (mL): minimal Specimens/Packing Specimens Removed ge jxn, antrum MILIND SORIANO MD Jun 12, 2018 14:52
--- NOTE | 2018-06-12 18:31 | OPERATIVE REPORT ---
DATE OF SERVICE: 06/12/2018 ATTENDING PRIMARY CARE PHYSICIAN: Dr. Tyler. PREOPERATIVE DIAGNOSES: Gastroesophageal reflux disease and dysphagia. POSTOPERATIVE DIAGNOSES: Reflux esophagitis stage II, mild distal esophageal stricture, small hiatal hernia 1 cm in size, moderate gastritis. PROCEDURE: EGD with biopsy and balloon dilatation. SURGEON: Milind Soriano MD ANESTHESIA: Conscious sedation. ESTIMATED BLOOD LOSS: Minimal. FINDINGS: Reflux esophagitis stage II, mild distal esophageal stricture, small hiatal hernia 1 cm in size, moderate severity gastritis with no formal ulcerations, polyps or any neoplasms. DISPOSITION: The patient tolerated the procedure well. 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 He presented to the office with a cough and dysphagia and has also experienced hoarseness in his voice on an intermittent basis. He does have a history of gastroesophageal reflux disease and has been taken omeprazole 20 mg daily. DESCRIPTION OF PROCEDURE: The patient was brought to the endoscopy suite, laid in the left lateral decubitus position. After adequate IV pain and sedating medications and conscious sedation anesthesia, the mouthpiece was applied. Endoscope was placed in the mouth, visualizing the pharynx and hypopharyngeal region. Vocal cords, epiglottis and vallecula identified and appeared to be normal. The endoscope was then gently intubated at the esophageal opening and esophagus insufflated. Endoscope was then advanced through the first, second and third portion of the esophagus at the level of the GE junction, a reflux esophagitis stage II identified. There was a mild distal esophageal stricture identified and Schatzki's ring. A biopsy was taken of this region using forceps with visualization of good hemostasis. The endoscope was then advanced into the stomach and endoscope retroflexed, visualizing a small hiatal hernia approximately 1 cm in size. There was moderate severity gastritis more towards the stomach antrum. No formal ulcerations, polyps or any neoplasms identified. A biopsy was then taken of the antrum to rule out H. pylori with visualization of good hemostasis. The endoscope was then advanced to the pylorus and the first and second portion of the duodenum, which appeared normal with no distal obstructions. The endoscope was then advanced to the pylorus and the first and second portion of the duodenum, which appeared normal with no distal obstructions. We then first decided to proceed with dilatation of the distal esophageal stricture. The balloon was placed in the stomach and pulled back to the area of the stricture and first insufflated to 2 atmospheres of pressure or 18 mm in circumferential diameter with no resistance. We then proceeded to 4 atmospheres of pressure or 19 mm in circumferential diameter with minimal resistance. We then went to 6 atmospheres of pressure or 20 mm in luminal diameter with moderate resistance and left this in place for 60 seconds. The balloon was then desufflated and removed with visualization of good hemostasis as well as no mucosal tears. The endoscope was then slowly withdrawn while taking a second look and suctioning of residual air with no additional findings. The patient tolerated the procedure well. We will recommend medical management with the necessary lifestyle and diet accommodation including small and more frequent meals, avoiding to eating at night as well as head elevation while lying supine. He also needs to stop smoking and avoid caffeinated beverages, spicy, greasy and acidic foods. We will also proceed with a trial of Protonix 40 mg daily. For this distal esophageal stricture, we will have him follow up in 6 weeks to see if he continues to be symptomatic requiring further graded dilatation or resolution of his symptoms. Job ID: [id number] DocumentID: [id number] Dictated Date: 06/12/2018 12:47:19 [employer] Apprentice Date: 06/12/2018 18:30:40 Dictated By: MILIND SORIANO MD
== END 2018-06-12 14:00 | disposition home or self-care (01) ==
LOC: ENDO 08:41
PROVIDERS: ATTEND Surgery
DX: K21.0 Gastro-esophageal reflux disease with esophagitis (principal); K22.2 Esophageal obstruction; K44.9 Diaphragmatic hernia without obstruction or gangrene; K29.50 Unspecified chronic gastritis without bleeding; Z86.14 Personal history of Methicillin resistant Staphylococcus aureus infection; E11.9 Type 2 diabetes mellitus without complications; I10 Essential (primary) hypertension; J44.9 Chronic obstructive pulmonary disease, unspecified; Z88.2 Allergy status to sulfonamides; Z79.4 Long term (current) use of insulin; Z79.82 Long term (current) use of aspirin; Z79.899 Other long term (current) drug therapy; F17.210 Nicotine dependence, cigarettes, uncomplicated
CPT/HCPCS: 82962

== ENCOUNTER 2019-01-16 12:40 | Emergency (ER) | payer MEDICAID ==
[~2019-01-16] VITALS: Ht 160 cm; Wt 113.0 kg
[~2019-01-16 12:40] MED LIST changes: +BUDE10.2 IH; +DULA1.5P2 SQ; +HUMULOG SUBMUCOS; +INSU100V6 SQ; +NITR2.5C15 PO; +PANT40TA2 PO; +RT-ALBUINH INH; +TBR.3OP51 OP; +TIOT18CA2 IH
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
[2019-01-16] MEDS ORDERED: fentaNYL INJECTION 100 MCG/2 ML AMP IVP ONE ×2 (13:00→14:45)
[2019-01-16 13:19] LABS: BASOPHILS # (AUTO) 0.1 10^3/uL (0.0-0.1); BASOPHILS % (AUTO) 1 % (0-10); EOSINOPHILS # (AUTO) 0.3 10^3/uL (0.0-0.3); EOSINOPHILS % (AUTO) 5 % (0-10); HEMATOCRIT 43 % (40-54); HEMOGLOBIN 14.3 G/DL (13.3-17.7); LYMPHOCYTES # (AUTO) 1.3 X 10^3 (1.0-4.0); LYMPHOCYTES % (AUTO) 19 % (12-44); MEAN CORPUSCULAR HEMOGLOBIN 29 PG (25-34); MEAN CORPUSCULAR HGB CONC 33 G/DL (32-36); MEAN CORPUSCULAR VOLUME 87 FL (80-99); MEAN PLATELET VOLUME 11.7 FL (7.4-10.4); MONOCYTES # (AUTO) 0.8 X 10^3 (0.0-1.0); MONOCYTES % (AUTO) 11 % (0-12); NEUTROPHILS # (AUTO) 4.4 X 10^3 (1.8-7.8); NEUTROPHILS % (AUTO) 64 % (42-75); PLATELET COUNT 198 10^3/uL (130-400); RED CELL DISTRIBUTION WIDTH 13.5 % (10.0-14.5); WHITE BLOOD COUNT 6.8 10^3/uL (4.3-11.0)
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
[2019-01-16 13:39] LABS: ALANINE AMINOTRANSFERASE 17 U/L (0-55); ALBUMIN 4.1 GM/DL (3.2-4.5); ALKALINE PHOSPHATASE 97 U/L (40-136); BILIRUBIN,TOTAL 0.3 MG/DL (0.1-1.0); BUN/CREATININE RATIO 18; CALCIUM 9.2 MG/DL (8.5-10.1); CARBON DIOXIDE 29 MMOL/L (21-32); CHLORIDE 100 MMOL/L (98-107); CREATININE SERUM 0.85 MG/DL (0.60-1.30); GFR ESTIMATED > 60; GLUCOSE 257 MG/DL (70-105); SODIUM 138 MMOL/L (135-145); TOTAL PROTEIN 7.1 GM/DL (6.4-8.2)
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
[2019-01-16] MEDS ORDERED: ACHD5005 PO (14:26)
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
[2019-01-16 15:45] VITALS: BP 120/69
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
== END 2019-01-16 15:45 | disposition home or self-care (01) ==
LOC: EDUNIT# 12:43 → ER 12:47
DX: S09.90XA Unspecified injury of head, initial encounter (principal); S16.1XXA Strain of muscle, fascia and tendon at neck level, initial encounter; M79.605 Pain in left leg; I10 Essential (primary) hypertension; E11.9 Type 2 diabetes mellitus without complications; E78.00 Pure hypercholesterolemia, unspecified; J44.9 Chronic obstructive pulmonary disease, unspecified; F41.9 Anxiety disorder, unspecified; E66.9 Obesity, unspecified; Z88.2 Allergy status to sulfonamides; Z79.82 Long term (current) use of aspirin; Z79.84 Long term (current) use of oral hypoglycemic drugs; Z68.41 Body mass index [BMI] 40.0-44.9, adult; V49.50XA Passenger injured in collision with unspecified motor vehicles in traffic accident, initial encounter
CPT/HCPCS: 36415; 70450; 71045; 72125; 72131; 73030; 80053; 85025; 96374; 96376

== ENCOUNTER → 2019-03-12 | Outpatient (CLI) | payer MEDICAID ==
[~2019-03-12] MED LIST changes: +ACHD5005 PO; -NITR2.5C15 PO; +SIMV40TA25 PO; -SIMV40TA4 PO; +[UNRECOGNIZED DRUG - CODE] PO
--- NOTE | 2019-03-12 12:06 | Diagnostic Imaging Report ---
INDICATION: Fall with shoulder pain. Time of exam 11:23 AM Views of bilateral acromioclavicular joints were obtained both without and with weightbearing. Acromioclavicular alignment is maintained on both without and with weightbearing. No separation is seen. There are acromioclavicular joint degenerative changes bilaterally. Glenohumeral alignment is maintained. No fractures are seen. IMPRESSION: AC joint degenerative change. No acute bony abnormality is detected. Dictated by: Dictated on workstation # [id number]
--- NOTE | 2019-03-12 12:17 | Diagnostic Imaging Report ---
INDICATION: Fall with difficulty breathing. TIME OF EXAM: 11:20 a.m. COMPARISON: Comparison is made with prior chest from 01/16/2019. FINDINGS: The heart size is normal. The pulmonary vascularity is unremarkable. The lungs are clear. No infiltrate, effusion or pneumothorax is detected. IMPRESSION: No acute cardiopulmonary process is detected. Dictated by: Dictated on workstation # [id number]
--- NOTE | 2019-03-12 12:18 | Diagnostic Imaging Report ---
INDICATION: Fall with low back pain. Time of exam 11:13 AM 3 views lumbar spine were obtained. Curvature and alignment is normal. Vertebral body heights and disc spaces are fairly well-maintained. No fracture or subluxation is seen. There is some degenerative disc disease noted lower thoracic spine. There is atherosclerotic calcifications in the abdominal aorta. IMPRESSION: Lower thoracic spondylosis. No acute bony abnormality is detected. Dictated by: Dictated on workstation # [id number]
== END ==
LOC: RAD 10:38
PROVIDERS: ATTEND Family Medicine
DX: M19.012 Primary osteoarthritis, left shoulder (principal); M19.011 Primary osteoarthritis, right shoulder; R06.89 Other abnormalities of breathing; M47.814 Spondylosis without myelopathy or radiculopathy, thoracic region; W19.XXXA Unspecified fall, initial encounter
CPT/HCPCS: 71045; 72100; 73050

== ENCOUNTER → 2019-06-09 | Outpatient (CLI) | payer MEDICAID ==
--- NOTE | 2019-06-09 11:58 | Diagnostic Imaging Report ---
EXAMINATION: PA and lateral chest at 11:39 a.m. INDICATION: Shortness of breath. FINDINGS: The heart size is within normal limits and stable when compared to 03/12/2019. The lungs are clear. There is no evidence for failure, pneumonia, or for pleural effusion. The mediastinum is not widened. The osseous structures are intact. IMPRESSION: There is no evidence for active disease. When compared to the prior study, there has been no significant change. Dictated by: Dictated on workstation # [id number]
== END ==
LOC: RAD 10:35
PROVIDERS: ATTEND Nurse Practitioner Family
DX: J98.4 Other disorders of lung (principal); G47.33 Obstructive sleep apnea (adult) (pediatric)
CPT/HCPCS: 71046

== ENCOUNTER → 2019-06-12 | Outpatient (CLI) | payer MEDICAID ==
[2019-06-12 11:15] LABS: ABG BASE EXCESS 6.5 MMOL/L (-2.5-2.5); ABG OXYGEN SATURATION 96 % (94-100); ABG PCO2 50 MMHG (35-45); ABG PH 7.41 (7.37-7.43); ABG PO2 73 MMHG (79-93); ALLENS TEST POSITIVE; PATIENT TEMP 35.9; VENTILATOR NO
== END ==
LOC: LAB 09:57
PROVIDERS: ATTEND Internal Medicine Critical Care Medicine
DX: G47.33 Obstructive sleep apnea (adult) (pediatric) (principal); F17.210 Nicotine dependence, cigarettes, uncomplicated; J98.4 Other disorders of lung; G47.36 Sleep related hypoventilation in conditions classified elsewhere
CPT/HCPCS: 36600; 82805

== ENCOUNTER → 2019-09-29 | Outpatient (CLI) | payer MEDICAID ==
[~2019-09-29] MED LIST changes: +NITR2.5C16 PO; -[UNRECOGNIZED DRUG - CODE] PO
--- NOTE | 2019-09-29 12:40 | Diagnostic Imaging Report ---
Indication: Cough and pleuritic chest pain. Time of exam: 12:03 PM Correlation is made with prior chest from 06/09/2019. The heart size is normal. The pulmonary vascularity is unremarkable. The lungs are clear. No infiltrate, effusion or pneumothorax is detected. Impression: No acute cardiopulmonary process is detected. Dictated by: Dictated on workstation # [id number]
== END ==
LOC: RAD 11:41
PROVIDERS: ATTEND Family Medicine
DX: R05 Cough (principal); R07.81 Pleurodynia
CPT/HCPCS: 71045

== ENCOUNTER 2019-11-24 14:49 | Emergency (ER) | payer MEDICAID ==
[~2019-11-24] VITALS: Ht 160 cm; Wt 105.8 kg
[2019-11-24 15:22] LABS: BASOPHILS % (AUTO) 0 % (0-10); EOSINOPHILS # (AUTO) 0.3 10^3/uL (0.0-0.3); EOSINOPHILS % (AUTO) 3 % (0-10); HEMATOCRIT 49 % (40-54); HEMOGLOBIN 15.9 G/DL (13.3-17.7); LYMPHOCYTES # (AUTO) 2.4 X 10^3 (1.0-4.0); LYMPHOCYTES % (AUTO) 28 % (12-44); MEAN CORPUSCULAR HEMOGLOBIN 30 PG (25-34); MEAN CORPUSCULAR HGB CONC 33 G/DL (32-36); MEAN CORPUSCULAR VOLUME 93 FL (80-99); MEAN PLATELET VOLUME 11.5 FL (7.4-10.4); MONOCYTES # (AUTO) 0.8 X 10^3 (0.0-1.0); MONOCYTES % (AUTO) 9 % (0-12); NEUTROPHILS # (AUTO) 5.2 X 10^3 (1.8-7.8); NEUTROPHILS % (AUTO) 60 % (42-75); PLATELET COUNT 188 10^3/uL (130-400); RED CELL DISTRIBUTION WIDTH 15.2 % (10.0-14.5); WHITE BLOOD COUNT 8.7 10^3/uL (4.3-11.0)
[2019-11-24 15:35] LABS: ALBUMIN 4.2 GM/DL (3.2-4.5); CHLORIDE 94 MMOL/L (98-107); POTASSIUM 4.1 MMOL/L (3.6-5.0); SODIUM 135 MMOL/L (135-145)
[2019-11-24 15:36] LABS: CALCIUM 9.4 MG/DL (8.5-10.1)
[2019-11-24 15:38] LABS: INR 0.9 (0.8-1.4); PROTHROMBIN TIME PATIENT 12.5 SEC (12.2-14.7); TOTAL PROTEIN 7.4 GM/DL (6.4-8.2)
[2019-11-24 15:39] LABS: BILIRUBIN,TOTAL 0.3 MG/DL (0.1-1.0); CARBON DIOXIDE 29 MMOL/L (21-32)
[2019-11-24 15:41] LABS: ALKALINE PHOSPHATASE 103 U/L (40-136); CREATININE SERUM 1.08 MG/DL (0.60-1.30); GFR ESTIMATED > 60
[2019-11-24 15:42] LABS: BUN/CREATININE RATIO 12
[2019-11-24 15:44] LABS: ALANINE AMINOTRANSFERASE 22 U/L (0-55)
[2019-11-24 15:48] LABS: GLUCOSE 443 MG/DL (70-105)
--- NOTE | 2019-11-24 15:49 | Diagnostic Imaging Report ---
Indication: Cough and shortness of breath Portable chest 3:41 PM Heart size and pulmonary vascularity are normal. Lungs are clear. There are no effusions or pneumothoraces. IMPRESSION: Negative chest Dictated by: Dictated on workstation # [id number]
[2019-11-24] MEDS ORDERED: NS IV 1000 ML 1,000 ML IV SCH (15:59)
[2019-11-24] MEDS ORDERED: RT-ALBUTEROL INHALER HFA (VENTOLIN HFA) 18 GM IH ONE (16:00)
[2019-11-24] MEDS ORDERED: cefTRIAXone FOR IV USE 1,000 MG in WATER (STERILE) FOR INJECTION 10 ML IV ONE (16:00)
[2019-11-24] MEDS ORDERED: RX-ALBUTEROL INHALER (VENTOLIN HFA) 18 GM IH STA (16:02)
--- NOTE | 2019-11-24 17:27 | ED General ---
General Chief Complaint: Respiratory Problems Stated Complaint: WEAKNESS;SOA Nursing Triage Note: PT AMB TO RM 10 WITH COMPLAINT OF SOA, COUGH, WEAKNESS, DIFFICULTY WALKING AND TIREDNESS FOR 2 WEEKS. Nursing Sepsis Screen: No Definite Risk Source of Information: Patient Exam Limitations: No Limitations History of Present Illness Date Seen by Provider: Nov 24, 2019 Time Seen by Provider: 15:14 Initial Comments This 69-year-old man presents to the emergency room as directed by Dr. Bonds because of weakness, hyperglycemia, and productive cough. He has not been feeling well for about a week. He has not taken his medications for the last couple of days. He denies fever. He was weak and short of breath to the extent he required at rest when walking about 50 feet from the scale to the exam room. Denies any chest pain or fever. He has no known COVID-19 exposures. Allergies and Home Medications Allergies Coded Allergies: Sulfa (Sulfonamide Antibiotics) (Verified Allergy, Unknown, 06/12/18) Home Medications Albuterol Sulfate 1 Puff Puff, 2 PUFF INH Q4H, (Reported) 1 PUFF = 90 MCG Aspirin 81 Mg Tabec, 81 MG PO DAILY, (Reported) Budesonide/Formoterol Fumarate 10.2 Gm Hfa.aer.ad, 2 PUFF IH BID, (Reported) Bupropion HCl 75 Mg Tablet, 75 MG PO BID, (Reported) Dulaglutide 1.5 Mg/0.5 Ml Pen.injctr, 1.5 MG SQ WEEK, (Reported) Hydrocodone Bit/Acetaminophen 1 Tab Tab, 1 EACH PO Q4-6HR PRN for PAIN-MODERATE Prescribed by: JUVE KAY on 01/16/19 1426 Lisinopril 40 Mg Tablet, 40 MG PO DAILY, (Reported) Loratadine 10 Mg Tablet, 10 MG PO DAILY, (Reported) Metformin HCl 500 Mg Tablet, 500 MG PO BID, (Reported) Metoprolol Tartrate 100 Mg Tablet, 100 MG PO BID, (Reported) Nitroglycerin 2.5 Mg Capsule.er, 2.5 MG PO for CHEST PAIN, (Reported) Omeprazole 20 Mg Tablet.dr, 20 MG PO DAILY, (Reported) Pantoprazole Sodium 40 Mg Tablet.dr, 40 MG PO DAILY Prescribed by: MILIND SORIANO on 06/12/18 1042 Simvastatin 40 Mg Tablet, 40 MG PO HS, (Reported) Tiotropium [place] 1 Inh Aerp, 1 INH IH DAILY, (Reported) Tobramycin 5 Ml Drops, 5 ML OP DAILY, (Reported) Patient Home Medication List Home Medication List Reviewed: Yes Review of Systems Review of Systems Constitutional: no symptoms reported, see HPI EENTM: no symptoms reported Respiratory: see HPI Cardiovascular: no symptoms reported Gastrointestinal: no symptoms reported Genitourinary: no symptoms reported Musculoskeletal: no symptoms reported Skin: no symptoms reported Psychiatric/Neurological: No Symptoms Reported Hematologic/Lymphatic: No Symptoms Reported Immunological/Allergic: no symptoms reported Past Neyzjno-Rdumef-Yxjjsf Hx Past Med/Social Hx: Reviewed Nursing Past Med/Soc Hx Patient Social History Alcohol Use: Denies Use Recreational Drug Use: No Smoking Status: Current Everyday Smoker Type Used: Cigarettes Recent Foreign Travel: No Contact w/Someone Who Travel: No Recent Infectious Disease Expo: No Recent Hopitalizations: No (BRONCHITIS, PNEUMONIA) Immunizations Up To Date Tetanus Booster (TDap): Unknown PED Vaccines UTD: Yes Date of Influenza Vaccine: Jan 15, 2011 Past Medical History Surgeries: Yes (HERNIA REPAIR, LUMBAR SURGERY) Abdominal, Cardiac Respiratory: Yes (USES INHALER) COPD Cardiac: Yes High Cholesterol, Hypertension Neurological: No Reproductive Disorders: No Gastrointestinal: Yes (S/P BILATERAL INGUINAL HERNIA REPAIR) Musculoskeletal: Yes (CHRONIC RIGHT KNEE PAIN ) Endocrine: Yes (OBESITY) Diabetes, Insulin dep Hearing Impairment: Denies Cancer: No Psychosocial: Yes Anxiety Integumentary: No Blood Disorders: No Family Medical History Diabetes, Hypertension Physical Exam Vital Signs Vital Signs - First Documented 11/24/19 15:01 Temp 37.0 Pulse 110 Resp 13 B/P (MAP) 155/94 (114) Pulse Ox 94 O2 Delivery Room Air Capillary Refill : Less Than 3 Seconds Height, Weight, BMI Height: 5'3.00" Weight: 260lbs. 1.0oz. 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34*H Laboratory Tests 11/24/19 15:13: Creatinine 1.08, INR Comment 0.9, Platelet Count 188, Total Bilirubin 0.3 Results/Orders Lab Results Laboratory Tests Test 11/24/19 15:13 11/24/19 15:17 Range/Units White Blood Count 8.7 4.3-11.0 10^3/uL Red Blood Count 5.27 4.35-5.85 10^6/uL Hemoglobin 15.9 13.3-17.7 G/DL Hematocrit 49 40-54 % Mean Corpuscular Volume 93 80-99 FL Mean Corpuscular Hemoglobin 30 25-34 PG Mean Corpuscular Hemoglobin Concent 33 32-36 G/DL Red Cell Distribution Width 15.2 H 10.0-14.5 % Platelet Count 188 130-400 10^3/uL Mean Platelet Volume 11.5 H 7.4-10.4 FL Neutrophils (%) (Auto) 60 42-75 % Lymphocytes (%) (Auto) 28 12-44 % Monocytes (%) (Auto) 9 0-12 % Eosinophils (%) (Auto) 3 0-10 % Basophils (%) (Auto) 0 0-10 % Neutrophils # (Auto) 5.2 1.8-7.8 X 10^3 Lymphocytes # (Auto) 2.4 1.0-4.0 X 10^3 Monocytes # (Auto) 0.8 0.0-1.0 X 10^3 Eosinophils # (Auto) 0.3 0.0-0.3 10^3/uL Basophils # (Auto) 0.0 0.0-0.1 10^3/uL Prothrombin Time 12.5 12.2-14.7 SEC INR Comment 0.9 0.8-1.4 Activated Partial Thromboplast Time 28 24-35 SEC D-Dimer 0.33 0.00-0.49 UG/ML Sodium Level 135 135-145 MMOL/L Potassium Level 4.1 3.6-5.0 MMOL/L Chloride Level 94 L 98-107 MMOL/L Carbon Dioxide Level 29 21-32 MMOL/L Anion Gap 12 5-14 MMOL/L Blood Urea Nitrogen 13 7-18 MG/DL Creatinine 1.08 0.60-1.30 MG/DL Estimat Glomerular Filtration Rate > 60 BUN/Creatinine Ratio 12 Glucose Level 443 *H 70-105 MG/DL Lactic Acid Level 2.34 *H 0.50-2.00 MMOL/L Calcium Level 9.4 8.5-10.1 MG/DL Corrected Calcium 9.2 8.5-10.1 MG/DL Total Bilirubin 0.3 0.1-1.0 MG/DL Aspartate Amino Transf (AST/SGOT) 16 5-34 U/L Alanine Aminotransferase (ALT/SGPT) 22 0-55 U/L Alkaline Phosphatase 103 40-136 U/L Troponin I < 0.028 <0.028 NG/ML C-Reactive Protein High Sensitivity 0.18 0.00-0.50 MG/DL B-Type Natriuretic Peptide < 10.0 <100.0 PG/ML Total Protein 7.4 6.4-8.2 GM/DL Albumin 4.2 3.2-4.5 GM/DL Procalcitonin 0.02 <0.10 NG/ML Glucometer 390 H 70-110 MG/DL My Orders Orders - HEMA JORGE MD Cbc With Automated Diff (11/24/19 15:14) Comprehensive Metabolic Panel (11/24/19 15:14) Blood Culture (11/24/19 15:14) Sputum Culture (11/24/19 15:14) Urinalysis (11/24/19 15:14) Urine Culture (11/24/19 15:14) Protime With Inr (11/24/19 15:14) Partial Thromboplastin Time (11/24/19 15:14) Chest 1 View, Ap/Pa Only (11/24/19 15:14) Ed Iv/Invasive Line Start (11/24/19 15:14) Ed Iv/Invasive Line Start (11/24/19 15:14) Ekg Tracing (11/24/19 15:14) Troponin I (11/24/19 15:14) Vital Signs Adult Sepsis Patie Q15M (11/24/19 15:14) Remove Rings In Anticipation O (11/24/19 15:14) Lactic Acid Analyzer (11/24/19 15:14) BNP (11/24/19 15:14) Hs C Reactive Protein (11/24/19 15:14) Procalcitonin (Pct) (11/24/19 15:14) Fibrin Degradation Products (11/24/19 15:55) Ns Iv 1000 Ml (Sodium Chloride 0.9%) (11/24/19 15:59) Ceftriaxone For Iv Use (Rocephin For I (11/24/19 16:00) Coronavirus Sars-Cov-2 So 2018 (11/24/19 16:00) Rx-Albuterol Inhaler (Rx-Ventolin Hfa) (11/24/19 16:02) Accucheck Stat ONCE (11/24/19 16:03) Albuterol Inhaler (Ventolin Hfa) (11/24/19 16:00) Albuterol Inhaler (Ventolin Hfa) (11/24/19 18:00) Medications Given in ED Current Medications Medications Dose Ordered Sig/Olu Route Start Time Stop Time Status Last Admin Dose Admin Ceftriaxone Sodium 1000 mg/ Sterile Water 10 ml @ 200 mls/hr ONCE ONCE IV 11/24/19 16:00 11/24/19 16:02 DC 11/24/19 17:34 200 MLS/HR Vital Signs/I&O 11/24/19 15:01 Temp 37.0 Pulse 110 Resp 13 B/P (MAP) 155/94 (114) Pulse Ox 94 O2 Delivery Room Air Capillary Refill : Less Than 3 Seconds Blood Pressure Mean: 114 Progress Note #1: Time: 17:24 Progress Note Patient was tachycardic and mildly hypoxic on room air. He received an albuterol inhaler and hypoxia resolved after 6 puffs. Oxygen saturations on room air now are around 95 percent. Lactic acid was elevated which likely r eflects fluid status and hyperglycemia rather than infection. This is evidenced by a normal white count, CRP, and Protonix at home in. There was question of an infiltrate on the x-ray and he was treated with Rocephin. Azithromycin will be given as a prescription. COVID-19 screening is being obtained. A liter of IV fluids was infused and blood sugars being rechecked. Progress Note #2: Time: 17:45 Progress Note Repeat blood sugar was 351. Patient was feeling better and pacing around the room. Oxygen saturation stayed in the mid 90s without any oxygen supplement. He was discharged home. ECG Initial ECG Impression Date: Nov 24, 2019 Initial ECG Impression Time: 15:02 Initial ECG Rate: 107 Initial ECG Rhythm: Normal Sinus Comment Sinus tachycardia with no ST elevation or depression. PVC noted. Right bundle branch block, chronic. No axis deviation. Similar to prior. Diagnostic Imaging Diagonstic Imaging: Xray Plain Films/CT/US/NM/MRI: chest Comments Chest x-ray viewed by me and report reviewed. Report was read as negative but when compared with prior there appears to be some bibasilar infiltrate and/or atelectasis. See report below. NAME: [facility] REC#: [id number] PT STATUS: REG ER : 1950 PHYSICIAN: HEMA JORGE MD ADMIT DATE: 11/24/19/ER Signed Date of Exam:11/24/19 CHEST 1 VIEW, AP/PA ONLY Indication: Cough and shortness of breath Portable chest 3:41 PM Heart size and pulmonary vascularity are normal. Lungs are clear. There are no effusions or pneumothoraces. IMPRESSION: Negative chest Dictated by: Dictated on workstation # [id number] Dict: 11/24/19 1547 Trans: 11/24/19 1547 TB [id number] Interpreted by: LIAN FLORES MD Electronically signed by: LINA FLORES MD 11/24/19 1547 Departure Impression Primary Impression: COPD exacerbation Additional Impression: Hyperglycemia Disposition: 01 HOME, SELF-CARE Condition: Improved Departure-Patient Inst. Decision time for Depature: 17:33 Referrals: ISABELLE BONDS MD (PCP/Family) Primary Care Physician Patient Instructions: Chronic Obstructive Pulmonary Disease (COPD) (DC), Coronavirus Disease 2019 (COVID-19) (DC) Add. Discharge Instructions: Work toward quitting smoking as rapidly and is completely as possible. Seek assistance from your primary care provider as needed. Isolate at home until the results of your COVID testing are known. Drink plenty of water and monitor your blood sugars closely. Resume all of your medications as previously prescribed. Use your inhaler up to 4 puffs every 4 hours as needed for wheezing or shortness of breath. Make a follow-up appointment with your primary care provider within the next week. Return to the emergency room if you have worsening symptoms. All discharge instructions reviewed with patient and/or family. Voiced understanding. Scripts Azithromycin (Azithromycin) 250 Mg Tablet 250 MG PO UD, #6 TAB TAKE 2 TABLETS ON DAY ONE THEN TAKE 1 TABLET DAILY FOR FOUR MORE DAYS Prov: HEMA JORGE MD 11/24/19 HEMA JORGE MD Nov 24, 2019 17:27
[2019-11-24] MEDS ORDERED: AZIT250T12 PO (17:44)
[2019-11-24] MEDS ORDERED: RT-ALBUTEROL INHALER HFA (VENTOLIN HFA) 18 GM IH SCH ×2 (18:00)
[2019-11-24] MEDS ORDERED: RELABEL FOR HOME USE MC SCH (18:00)
[2019-11-24 18:09] VITALS: BP 133/77
== END 2019-11-24 18:09 | disposition home or self-care (01) ==
LOC: EDUNIT# 14:49 → ER 14:50
DX: J44.1 Chronic obstructive pulmonary disease with (acute) exacerbation (principal); E11.65 Type 2 diabetes mellitus with hyperglycemia; I10 Essential (primary) hypertension; E78.00 Pure hypercholesterolemia, unspecified; E66.9 Obesity, unspecified; G89.29 Other chronic pain; M25.561 Pain in right knee; F41.9 Anxiety disorder, unspecified; F17.210 Nicotine dependence, cigarettes, uncomplicated; Z82.49 Family history of ischemic heart disease and other diseases of the circulatory system; Z68.41 Body mass index [BMI] 40.0-44.9, adult; Z88.2 Allergy status to sulfonamides; Z79.82 Long term (current) use of aspirin; Z79.84 Long term (current) use of oral hypoglycemic drugs
CPT/HCPCS: 36415; 71045; 80053; 82962; 83605; 83880; 84145; 84484; 85025; 85379; 85610; 85730; 86141; 87040; 87635; 93005

== ENCOUNTER 2021-01-31 12:41 | Emergency (ER) | payer MEDICAID ==
[~2021-01-31] VITALS: Ht 160 cm; Wt 97.0 kg
[~2021-01-31 12:41] MED LIST changes: +AZIT250T12 PO; -LISI40TA PO; +LISI40TA9 PO
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
--- NOTE | 2021-01-31 13:45 | Diagnostic Imaging Report ---
INDICATION: Crush injury, pain. FINDINGS: Two-view left hip showed no fracture, dislocation, bony avulsion, or acute abnormality. IMPRESSION: Unremarkable two-view left hip. Dictated by: Dictated on workstation # [id number]
--- NOTE | 2021-01-31 13:46 | Diagnostic Imaging Report ---
INDICATION: Crush injury. FINDINGS: Three-view left knee showed no fracture, dislocation, or acute appearing articular irregularity. IMPRESSION: No acute appearing abnormality. Dictated by: Dictated on workstation # [id number]
--- NOTE | 2021-01-31 13:53 | Diagnostic Imaging Report ---
INDICATION: Crush injury, pain. FINDINGS: Three-view left foot showed mild plantar calcaneal spurring as well as mild mid and forefoot arthritis. No fracture, dislocation, foreign body, gas, or acute appearing pathology found. IMPRESSION: No fracture or other acute abnormalities. Dictated by: Dictated on workstation # [id number]
[2021-01-31 14:17] VITALS: BP 136/88
== END 2021-01-31 14:17 | disposition home or self-care (01) ==
LOC: EDUNIT# 12:41 → ER 12:43
DX: S90.32XA Contusion of left foot, initial encounter (principal); J44.9 Chronic obstructive pulmonary disease, unspecified; I10 Essential (primary) hypertension; E66.9 Obesity, unspecified; E11.9 Type 2 diabetes mellitus without complications; E78.00 Pure hypercholesterolemia, unspecified; F17.210 Nicotine dependence, cigarettes, uncomplicated; Z68.37 Body mass index [BMI] 37.0-37.9, adult; Z79.4 Long term (current) use of insulin; Z79.82 Long term (current) use of aspirin; Z79.899 Other long term (current) drug therapy; W23.1XXA Caught, crushed, jammed, or pinched between stationary objects, initial encounter
CPT/HCPCS: 73502; 73562; 73630

== ENCOUNTER 2021-04-19 16:22 | Emergency (ER) | payer MEDICAID ==
[~2021-04-19] VITALS: Ht 160 cm; Wt 120.0 kg
[2021-04-19 16:40] VITALS: BP 146/82
--- NOTE | 2021-04-19 18:15 | ED General ---
General Chief Complaint: COVID19 Suspect/Confirmed Stated Complaint: HEADACHE/COUGH/CHILLS/BODYACHES Source of Information: Patient Exam Limitations: No Limitations (JUVE KAY APRN) History of Present Illness Date Seen by Provider: Apr 19, 2021 Time Seen by Provider: 17:00 Initial Comments Fever cough body aches for a few days is ill with similar. Timing/Duration: 2-3 Days Severity: Moderate Associated Systoms: Cough (JUVE KAY APRN) Allergies and Home Medications Allergies Coded Allergies: Sulfa (Sulfonamide Antibiotics) (Verified Allergy, Unknown, 06/12/18) Patient Home Medication List Home Medication List Reviewed: Yes (JUVE KAY APRN) Albuterol Sulfate (Ventolin Hfa) 1 Puff Puff, 2 PUFF INH Q4H, (Reported) Entered as Reported by: BELTRAN HAMILTON on 06/12/18 1008 Amoxicillin/Potassium Clav (Augmentin 875-125 Tablet) 1 Each Tablet, 1 EACH PO BID Prescribed by: JUVE KAY on 04/19/21 1908 Aspirin (Aspirin Ec 81 Mg) 81 Mg Tabec, 81 MG PO DAILY, (Reported) Entered as Reported by: ROSA SUERO on 06/16/11 1557 Azithromycin (Azithromycin) 250 Mg Tablet, 250 MG PO UD Prescribed by: HEMA MEDINA on 11/24/19 1744 Budesonide/Formoterol Fumarate (Symbicort 160-4.5 Mcg Inhaler) 10.2 Gm Hfa.aer.ad, 2 PUFF IH BID, (Reported) Entered as Reported by: BELTRAN HAMILTON on 06/12/18 1008 Bupropion HCl (Bupropion HCl) 75 Mg Tablet, 75 MG PO BID, (Reported) Entered as Reported by: VINCENT ROTH on 07/05/17 1154 Dulaglutide (Trulicity) 1.5 Mg/0.5 Ml Pen.injctr, 1.5 MG SQ WEEK, (Reported) Entered as Reported by: BELTRAN HAMILTON on 06/12/18 1006 Hydrocodone Bit/Acetaminophen (Lortab 5 Mg Tablet) 1 Tab Tab, 1 EACH PO Q4-6HR PRN for PAIN-MODERATE Prescribed by: JUVE KAY on 01/16/19 1426 Insulin Glargine,Hum.rec.anlog (Lantus) 100 Unit/1 Ml Vial, 80 UNIT SQ, (Reported) Entered as Reported by: BELTRAN HAMILTON on 06/12/18 1003 Lisinopril (Lisinopril) 40 Mg Tablet, 40 MG PO DAILY, (Reported) Entered as Reported by: VINCENT ROTH on 07/05/17 1157 Loratadine (Loratadine) 10 Mg Tablet, 10 MG PO DAILY, (Reported) Entered as Reported by: VINCENT ROTH on 07/05/17 1156 Metformin HCl (Metformin HCl) 500 Mg Tablet, 500 MG PO BID, (Reported) Entered as Reported by: VINCENT ROTH on 07/05/17 1154 Metoprolol Tartrate (Metoprolol Tartrate) 100 Mg Tablet, 100 MG PO BID, (Reported) Entered as Reported by: VINCENT RTOH on 07/05/17 1153 Nitroglycerin (Nitroglycerin) 2.5 Mg Capsule.er, 2.5 MG PO for CHEST PAIN, (Reported) Entered as Reported by: BELTRAN HAMILTON on 06/12/18 1006 Omeprazole (Omeprazole) 20 Mg Tablet.dr, 20 MG PO DAILY, (Reported) Entered as Reported by: VINCENT ROTH on 07/05/17 1155 Pantoprazole Sodium (Protonix) 40 Mg Tablet.dr, 40 MG PO DAILY Prescribed by: MILIND SORIANO on 06/12/18 1042 Simvastatin (Simvastatin) 40 Mg Tablet, 40 MG PO HS, (Reported) Entered as Reported by: VINCENT ROTH on 07/05/17 1155 Tiotropium [place] (Spiriva) 1 Inh Aerp, 1 INH IH DAILY, (Reported) Entered as Reported by: BELTRAN HAMILTON on 06/12/18 1007 Tobramycin (Tobramycin) 5 Ml Drops, 5 ML OP DAILY, (Reported) Entered as Reported by: BELTRAN HAMILTON on 06/12/18 1006 [Humulog] , 5 UNITS SUBMUCOS, (Reported) Entered as Reported by: BELTRAN HAMILTON on 06/12/18 1002 Review of Systems Review of Systems Constitutional: see HPI, chills EENTM: see HPI Respiratory: see HPI, cough Cardiovascular: no symptoms reported Genitourinary: no symptoms reported Musculoskeletal: no symptoms reported Skin: no symptoms reported Psychiatric/Neurological: No Symptoms Reported Hematologic/Lymphatic: No Symptoms Reported Immunological/Allergic: no symptoms reported (JUVE KAY APRN) Past Gnkkhpt-Fjjplt-Osgbge Hx Immunizations Up To Date Tetanus Booster (TDap): Unknown PED Vaccines UTD: Yes (JUVE KAY APRN) Past Medical History Surgery/Hospitalization HX: PMH: DM, HTN SX: HERNIA REPAIR X2 Surgeries: Yes (HERNIA REPAIR, LUMBAR SURGERY) Abdominal, Cardiac Respiratory: Yes (USES INHALER) COPD Cardiac: Yes High Cholesterol, Hypertension Neurological: No Reproductive Disorders: No Gastrointestinal: Yes (S/P BILATERAL INGUINAL HERNIA REPAIR) Musculoskeletal: Yes (CHRONIC RIGHT KNEE PAIN ) Endocrine: Yes (OBESITY) Diabetes, Insulin dep Hearing Impairment: Denies Cancer: No Psychosocial: Yes Anxiety Integumentary: No Blood Disorders: No (JUVE KAY APRN) Family Medical History Diabetes, Hypertension (JUVE KAY APRN) Physical Exam Vital Signs Vital Signs - First Documented 04/19/21 16:40 Temp 36.9 Pulse 115 Resp 20 B/P (MAP) 146/82 (103) Pulse Ox 92 O2 Delivery Room Air (ALEK,SYD K DO) Vital Signs Capillary Refill : (JUVE KAY APRN) Height, Weight, BMI Height: 5'3.00" Weight: 260lbs. 1.0oz. 117.897736qy; 37.00 BMI Method:Stated General Appearance: No Apparent Distress, WD/WN Eyes: Bilateral Eye Normal Inspection, Bilateral Eye PERRL, Bilateral Eye EOMI HEENT: PERRL/EOMI, TMs Normal Neck: Full Range of Motion, Normal Inspection Respiratory: No Accessory Muscle Use, No Respiratory Distress Cardiovascular: Regular Rate, Rhythm, Normal Peripheral Pulses Gastrointestinal: Non Tender, Soft Extremity: Normal Capillary Refill, Normal Inspection Neurologic/Psychiatric: Alert, Oriented x3 Skin: Normal Color, Warm/Dry (JUVE KAY APRN) Progress/Results/Core Measures Suspected Sepsis SIRS Temperature: Pulse: Respiratory Rate: Blood Pressure / Mean: (JUVE KAY APRN) Results/Orders Lab Results Laboratory Tests Test 04/19/21 16:55 Range/Units Influenza Type A (RT-PCR) Not Detected Not Detecte Influenza Type B (RT-PCR) Not Detected Not Detecte SARS-CoV-2 RNA (RT-PCR) Not Detected Not Detecte (SYD GASTON DO) Vital Signs/I&O 04/19/21 16:40 Temp 36.9 Pulse 115 Resp 20 B/P (MAP) 146/82 (103) Pulse Ox 92 O2 Delivery Room Air (SYD GASTON DO) Vital Signs/I&O Capillary Refill : (JUVE KAY APRN) Departure Impression Primary Impression: Pneumonia Disposition: HOME, SELF-CARE Condition: Stable Departure-Patient Inst. Decision time for Depature: 18:15 (JUVE KAY APRN) Referrals: ISABELLE PINEDA MD (PCP) Primary Care Physician Patient Instructions: Pneumonia, Adult ED Add. Discharge Instructions: All discharge instructions reviewed with patient and/or family. Voiced understanding. 1. Return to ER for any concerns 2. Follow-up with your doctor next week 3. Scripts Amoxicillin/Potassium Clav (Augmentin 875-125 Tablet) 1 Each Tablet 1 EACH PO BID, #14 TAB 0 Refills Prov: JUVE KAY APRN 04/19/21 ATTENDING PHYSICIAN NOTE: I WAS PHYSICALLY PRESENT ER PHYSICIAN WHEN THIS PATIENT WAS IN ER, BUT I WAS NOT INVOLVED IN ANY DECISION MAKING OR ANY CARE OF THIS PATIENT. (SYD GASTON DO) JUVE KAY APRN Apr 19, 2021 18:15 SYD GASTON DO Apr 21, 2021 03:20
--- NOTE | 2021-04-19 18:49 | Diagnostic Imaging Report ---
EXAM: CHEST 1 VIEW, AP/PA ONLY INDICATION: Cough. COMPARISON: 11/24/2019. FINDINGS: Normal heart size and central pulmonary vascularity. Airspace opacity in the right lung base. No pleural effusion or pneumothorax. No acute osseous findings. IMPRESSION: Airspace opacity in the right lung base suspicious for pneumonitis. Dictated by: Dictated on workstation # [id number]
[2021-04-19] MEDS ORDERED: AMOX-358 PO (19:08)
[2021-04-19] MEDS ORDERED: AUGMENTIN 875 MG TAB (AMOXICILLIN/CLAVULANATE) PO SCH (19:15)
== END 2021-04-19 19:45 | disposition home or self-care (01) ==
LOC: EDUNIT# 16:22 → ER 16:23
DX: J18.9 Pneumonia, unspecified organism (principal); J44.9 Chronic obstructive pulmonary disease, unspecified; I10 Essential (primary) hypertension; E66.9 Obesity, unspecified; E78.00 Pure hypercholesterolemia, unspecified; E11.9 Type 2 diabetes mellitus without complications; Z68.37 Body mass index [BMI] 37.0-37.9, adult; Z20.822 Contact with and (suspected) exposure to COVID-19; Z79.4 Long term (current) use of insulin; Z79.82 Long term (current) use of aspirin; Z79.899 Other long term (current) drug therapy
CPT/HCPCS: 71045; 87636; 99283

== ENCOUNTER 2021-07-11 14:18 | Emergency (ER) | payer MEDICAID ==
[~2021-07-11] VITALS: Ht 160 cm; Wt 106.5 kg
[~2021-07-11 14:18] MED LIST changes: +AMOX-358 PO
[2021-07-11] MEDS ORDERED: ASPIRIN 81 MG CHEW (CHILDREN'S ASA) PO ONE (14:30)
[2021-07-11] MEDS ORDERED: LACTATED RINGERS 1,000 ML IV SCH (14:30)
--- NOTE | 2021-07-11 14:33 | ED General ---
General Stated Complaint: CHEST PAIN Source of Information: Patient Exam Limitations: No Limitations History of Present Illness Date Seen by Provider: Jul 11, 2021 Time Seen by Provider: 14:30 Initial Comments To ER by private vehicle from Dr. Bonds office with reports of chest pain. He presented there to report some urinary frequency and "shitting a lot" since last night. He states that he was not having diarrhea just a large volume of bowel movements. Denies any pain though he has had some intermittent sharp chest pain occurring at random over the course of the past 2 months. That prompted them to refer him to the emergency room. No history of coronary stenting or coronary disease. Timing/Duration: 1-2 Days Severity: Moderate Associated Systoms: Nausea/Vomiting Allergies and Home Medications Allergies Coded Allergies: Sulfa (Sulfonamide Antibiotics) (Verified Allergy, Unknown, 06/12/18) Patient Home Medication List Home Medication List Reviewed: Yes Albuterol Sulfate (Ventolin Hfa) 1 Puff Puff, 2 PUFF INH Q4H, (Reported) Entered as Reported by: BELTRAN HAMILTON on 06/12/18 1008 Amoxicillin/Potassium Clav (Augmentin 875-125 Tablet) 1 Each Tablet, 1 EACH PO BID Prescribed by: JUVE KAY on 04/19/21 1908 Aspirin (Aspirin Ec 81 Mg) 81 Mg Tabec, 81 MG PO DAILY, (Reported) Entered as Reported by: ROSA SUERO on 06/16/11 1557 Azithromycin (Azithromycin) 250 Mg Tablet, 250 MG PO UD Prescribed by: HEMA MEDINA on 11/24/19 1744 Budesonide/Formoterol Fumarate (Symbicort 160-4.5 Mcg Inhaler) 10.2 Gm Hfa.aer.ad, 2 PUFF IH BID, (Reported) Entered as Reported by: BELTRAN HAMILTON on 06/12/18 1008 Bupropion HCl (Bupropion HCl) 75 Mg Tablet, 75 MG PO BID, (Reported) Entered as Reported by: VINCENT ROTH on 07/05/17 1154 Dulaglutide (Trulicity) 1.5 Mg/0.5 Ml Pen.injctr, 1.5 MG SQ WEEK, (Reported) Entered as Reported by: BELTRAN HAMILTON on 06/12/18 1006 Hydrocodone Bit/Acetaminophen (Lortab 5 Mg Tablet) 1 Tab Tab, 1 EACH PO Q4-6HR PRN for PAIN-MODERATE Prescribed by: JUVE KAY on 01/16/19 1426 Insulin Glargine,Hum.rec.anlog (Lantus) 100 Unit/1 Ml Vial, 80 UNIT SQ, (Reported) Entered as Reported by: BELTRAN HAMILTON on 06/12/18 1003 Lisinopril (Lisinopril) 40 Mg Tablet, 40 MG PO DAILY, (Reported) Entered as Reported by: VINCENT ROTH on 07/05/17 1157 Loratadine (Loratadine) 10 Mg Tablet, 10 MG PO DAILY, (Reported) Entered as Reported by: VINCENT ROTH on 07/05/17 1156 Metformin HCl (Metformin HCl) 500 Mg Tablet, 500 MG PO BID, (Reported) Entered as Reported by: VINCENT ROTH on 07/05/17 1154 Metoprolol Tartrate (Metoprolol Tartrate) 100 Mg Tablet, 100 MG PO BID, (Reported) Entered as Reported by: VINCENT ROTH on 07/05/17 1153 Nitroglycerin (Nitroglycerin) 2.5 Mg Capsule.er, 2.5 MG PO for CHEST PAIN, (Reported) Entered as Reported by: BELTRAN HAMILTON on 06/12/18 1006 Omeprazole (Omeprazole) 20 Mg Tablet.dr, 20 MG PO DAILY, (Reported) Entered as Reported by: VINCENT ROTH on 07/05/17 1155 Pantoprazole Sodium (Protonix) 40 Mg Tablet.dr, 40 MG PO DAILY Prescribed by: MILIND SORIANO on 06/12/18 1042 Simvastatin (Simvastatin) 40 Mg Tablet, 40 MG PO HS, (Reported) Entered as Reported by: VINCENT ROTH on 07/05/17 1155 Tiotropium Oden (Spiriva) 1 Inh Aerp, 1 INH IH DAILY, (Reported) Entered as Reported by: BELTRAN HAMILTON on 06/12/18 1007 Tobramycin (Tobramycin) 5 Ml Drops, 5 ML OP DAILY, (Reported) Entered as Reported by: BELTRAN HAMILTON on 06/12/18 1006 [Humulog] , 5 UNITS SUBMUCOS, (Reported) Entered as Reported by: BELTRAN HAMILTON on 06/12/18 1002 Review of Systems Review of Systems Constitutional: see HPI EENTM: see HPI Respiratory: no symptoms reported Cardiovascular: no symptoms reported Genitourinary: no symptoms reported Musculoskeletal: no symptoms reported Skin: no symptoms reported Psychiatric/Neurological: No Symptoms Reported Hematologic/Lymphatic: No Symptoms Reported Immunological/Allergic: no symptoms reported Past Cbltamy-Vwotul-Rsfgix Hx Immunizations Up To Date Tetanus Booster (TDap): Unknown PED Vaccines UTD: Yes Past Medical History Surgery/Hospitalization HX: PMH: DM, HTN SX: HERNIA REPAIR X2 Surgeries: Yes (HERNIA REPAIR, LUMBAR SURGERY) Abdominal, Cardiac Respiratory: Yes (USES INHALER) COPD Cardiac: Yes High Cholesterol, Hypertension Neurological: No Reproductive Disorders: No Gastrointestinal: Yes (S/P BILATERAL INGUINAL HERNIA REPAIR) Musculoskeletal: Yes (CHRONIC RIGHT KNEE PAIN ) Endocrine: Yes (OBESITY) Diabetes, Insulin dep Hearing Impairment: Denies Cancer: No Psychosocial: Yes Anxiety Integumentary: No Blood Disorders: No Family Medical History Diabetes, Hypertension Physical Exam Vital Signs Vital Signs - First Documented 07/11/21 14:21 Temp 36.0 Pulse 92 Resp 18 B/P (MAP) 134/84 (101) Capillary Refill : Height, Weight, BMI Height: 5'3.00" Weight: 260lbs. 1.0oz. 117.845075gb; 46.00 BMI Method:Stated General Appearance: No Apparent Distress, WD/WN, Chronically ill, Obese Eyes: Bilateral Eye Normal Inspection, Bilateral Eye PERRL, Bilateral Eye EOMI HEENT: PERRL/EOMI, TMs Normal Neck: Full Range of Motion, Normal Inspection Respiratory: Lungs Clear, Normal Breath Sounds, No Accessory Muscle Use, No Respiratory Distress Cardiovascular: Regular Rate, Rhythm, Normal Peripheral Pulses Gastrointestinal: Normal Bowel Sounds, No Pulsatile Mass, Non Tender, Soft Extremity: Normal Capillary Refill, Normal Inspection Neurologic/Psychiatric: Alert, Oriented x3 Skin: Normal Color, Warm/Dry Progress/Results/Core Measures Suspected Sepsis SIRS Temperature: Pulse: Respiratory Rate: Laboratory Tests 07/11/21 14:27: White Blood Count 8.4 Blood Pressure / Mean: Laboratory Tests 07/11/21 14:27: Creatinine 1.11, INR Comment 0.9, Platelet Count 221, Total Bilirubin 0.4 Results/Orders Lab Results Laboratory Tests Test 07/11/21 14:27 07/11/21 16:26 07/11/21 16:27 Range/Units White Blood Count 8.4 4.3-11.0 10^3/uL Red Blood Count 5.55 H 4.30-5.52 10^6/uL Hemoglobin 16.3 13.3-17.7 g/dL Hematocrit 50 40-54 % Mean Corpuscular Volume 90 80-99 fL Mean Corpuscular Hemoglobin 29 25-34 pg Mean Corpuscular Hemoglobin Concent 33 32-36 g/dL Red Cell Distribution Width 13.0 10.0-14.5 % Platelet Count 221 130-400 10^3/uL Mean Platelet Volume 11.7 9.0-12.2 fL Immature Granulocyte % (Auto) 0 % Neutrophils (%) (Auto) 53 42-75 % Lymphocytes (%) (Auto) 34 12-44 % Monocytes (%) (Auto) 10 0-12 % Eosinophils (%) (Auto) 3 0-10 % Basophils (%) (Auto) 1 0-10 % Neutrophils # (Auto) 4.4 1.8-7.8 10^3/uL Lymphocytes # (Auto) 2.9 1.0-4.0 10^3/uL Monocytes # (Auto) 0.8 0.0-1.0 10^3/uL Eosinophils # (Auto) 0.3 0.0-0.3 10^3/uL Basophils # (Auto) 0.1 0.0-0.1 10^3/uL Immature Granulocyte # (Auto) 0.0 0.0-0.1 10^3/uL Prothrombin Time 12.0 L 12.2-14.7 SEC INR Comment 0.9 0.8-1.4 Activated Partial Thromboplast Time 28 24-35 SEC Sodium Level 135 135-145 MMOL/L Potassium Level 4.3 3.6-5.0 MMOL/L Chloride Level 96 L 98-107 MMOL/L Carbon Dioxide Level 24 21-32 MMOL/L Anion Gap 15 H 5-14 MMOL/L Blood Urea Nitrogen 16 7-18 MG/DL Creatinine 1.11 0.60-1.30 MG/DL Estimat Glomerular Filtration Rate 72 BUN/Creatinine Ratio 14 Glucose Level 405 *H 70-105 MG/DL Calcium Level 9.9 8.5-10.1 MG/DL Corrected Calcium 9.7 8.5-10.1 MG/DL Magnesium Level 1.8 1.6-2.4 MG/DL Total Bilirubin 0.4 0.1-1.0 MG/DL Aspartate Amino Transf (AST/SGOT) 10 5-34 U/L Alanine Aminotransferase (ALT/SGPT) 20 0-55 U/L Alkaline Phosphatase 96 40-136 U/L Myoglobin 45.5 10.0-92.0 NG/ML Troponin I < 0.028 < 0.028 <0.028 NG/ML B-Type Natriuretic Peptide 33.8 <100.0 PG/ML Total Protein 7.6 6.4-8.2 GM/DL Albumin 4.3 3.2-4.5 GM/DL Beta-Hydroxybutyrate (Chem panel) 0.12 0.00-0.27 MMOL/L Glucometer 284 H 70-110 MG/DL My Orders Orders - JUVE KAY APRN Cbc With Automated Diff (07/11/21 14:) Magnesium (07/11/21 14:) Chest 1 View, Ap/Pa Only (07/11/21 14:28) Ekg Tracing (07/11/21 14:) Comprehensive Metabolic Panel (07/11/21 14:) Myoglobin Serum (07/11/21 14:) Protime With Inr (07/11/21:) Partial Thromboplastin Time (07/11/21 14:) O2 (07/11/21 14:) Monitor-Rhythm Ecg Trace Only (07/11/21 14:) Lipid Panel (07/12/21 06:00) Ed Iv/Invasive Line Start (07/11/21 14:28) Bnp Moon (07/11/21 14:28) Troponin I Jewell (07/11/21 14:28) Aspirin Chewable Tablet (Baby Aspirin Ch (07/11/21 14:30) Accucheck Stat ONCE (07/11/21 14:) Beta Hydroxybutyrate (07/11/21 14:28) Ed Iv/Invasive Line Start (07/11/21 14:28) Lactated Ringers (Lr 1000 Ml Iv Solution (07/11/21 14:30) Insulin (Regular) Human (Novolin R (Per (07/11/21 15:00) Troponin I Moon (07/11/21 16:22) Medications Given in ED Current Medications Medications Dose Ordered Sig/Olu Route Start Time Stop Time Status Last Admin Dose Admin Aspirin 324 mg ONCE ONCE PO 07/11/21 14:30 07/11/21 14:31 DC 07/11/21 14:39 324 MG Insulin Human Regular 8 unit ONCE ONCE IV 07/11/21 15:00 07/11/21 15:01 DC 07/11/21 15:05 8 UNIT Vital Signs/I&O 07/11/21 14:21 Temp 36.0 Pulse 92 Resp 18 B/P (MAP) 134/84 (101) Capillary Refill : Departure Impression Primary Impression: Hyperglycemia Additional Impression: History of chest pain Disposition: HOME, SELF-CARE Condition: Stable Departure-Patient Inst. Decision time for Depature: 15:11 Referrals: FRANKY DOUGLASS MD FACP FAC CCDS JAK PORTILLO MD NO,LOCAL PHYSICIAN (PCP) Primary Care Physician ULYSSES MARIN JR, MD Patient Instructions: Blood Glucose Monitoring, High Blood Sugar, Adult Add. Discharge Instructions: 1. Call one of the reporter anchor listed to make an appointment to be seen for follow-up for further testing of your ongoing chest pain. Return to ER for any worsening or other concerns. JUVE KAY CANVAS MARKER Jul 11, 2021 14:33
[2021-07-11 14:35] LABS: BASOPHILS # (AUTO) 0.1 10^3/uL (0.0-0.1); BASOPHILS % (AUTO) 1 % (0-10); EOSINOPHILS # (AUTO) 0.3 10^3/uL (0.0-0.3); EOSINOPHILS % (AUTO) 3 % (0-10); HEMATOCRIT 50 % (40-54); HEMOGLOBIN 16.3 g/dL (13.3-17.7); LYMPHOCYTES # (AUTO) 2.9 10^3/uL (1.0-4.0); LYMPHOCYTES % (AUTO) 34 % (12-44); MEAN CORPUSCULAR HEMOGLOBIN 29 pg (25-34); MEAN CORPUSCULAR HGB CONC 33 g/dL (32-36); MEAN CORPUSCULAR VOLUME 90 fL (80-99); MEAN PLATELET VOLUME 11.7 fL (9.0-12.2); MONOCYTES # (AUTO) 0.8 10^3/uL (0.0-1.0); MONOCYTES % (AUTO) 10 % (0-12); NEUTROPHILS # (AUTO) 4.4 10^3/uL (1.8-7.8); NEUTROPHILS % (AUTO) 53 % (42-75); PLATELET COUNT 221 10^3/uL (130-400); WHITE BLOOD COUNT 8.4 10^3/uL (4.3-11.0)
[2021-07-11 14:49] LABS: ALBUMIN 4.3 GM/DL (3.2-4.5); POTASSIUM 4.3 MMOL/L (3.6-5.0)
[2021-07-11 14:50] LABS: CALCIUM 9.9 MG/DL (8.5-10.1); INR 0.9 (0.8-1.4)
[2021-07-11 14:51] LABS: TOTAL PROTEIN 7.6 GM/DL (6.4-8.2)
[2021-07-11 14:53] LABS: BILIRUBIN,TOTAL 0.4 MG/DL (0.1-1.0)
--- NOTE | 2021-07-11 14:53 | Diagnostic Imaging Report ---
CHEST 1 VIEW, AP/PA ONLY Indication: Chest pain. Comparison: 04/19/2021 Findings: No focal airspace disease in the visualized lungs. Please note that the posterior lower lobes are poorly evaluated by portable radiography. No pleural effusion or pneumothorax. Normal cardiomediastinal silhouette. Impression: 1. No acute cardiopulmonary process by portable radiography. Dictated by: Dictated on workstation # [id number]
[2021-07-11 14:55] LABS: CREATININE SERUM 1.11 MG/DL (0.60-1.30)
[2021-07-11 14:57] LABS: MAGNESIUM 1.8 MG/DL (1.6-2.4)
[2021-07-11] MEDS ORDERED: inSUlin (REGULAR) HUMAN 1 UNIT/0.01 ML (CHARGE PER UNIT) IV ONE (15:00)
[2021-07-11 17:13] VITALS: BP 137/76
== END 2021-07-11 17:13 | disposition home or self-care (01) ==
LOC: EDUNIT# 14:18 → ER 14:20
DX: R73.9 Hyperglycemia, unspecified (principal); E66.9 Obesity, unspecified; Z68.42 Body mass index [BMI] 45.0-49.9, adult
CPT/HCPCS: 36415; 71045; 80053; 82010; 82947; 83735; 83874; 83880; 84484; 85025; 85610; 85730; 93005; 93041

== ENCOUNTER → 2021-08-30 | Outpatient (CLI) | payer MEDICAID ==
[~2021-08-30] MED LIST changes: +OMEP20TA56 PO; -OMEP20TA7 PO
== END ==
LOC: CARD 08:47
PROVIDERS: ATTEND Internal Medicine Cardiovascular Disease
DX: I11.9 Hypertensive heart disease without heart failure (principal); I25.10 Atherosclerotic heart disease of native coronary artery without angina pectoris
CPT/HCPCS: 93306

== ENCOUNTER → 2021-09-28 | Outpatient (CLI) | payer MEDICAID ==
[~2021-09-28] MED LIST changes: +CATHETER FLUSH 10 ML SYR IVP PRN; +REGADENOSON 0.4 MG/5 ML SYR (LEXISCAN) IV ONE
[2021-09-28 09:08] VITALS: BP 118/73
--- NOTE | 2021-09-28 14:48 | Cardiology Stress Test Report ---
Stress Test Report Date of Procedure/Referring: Date of Procedure: Sep 28, 2021 PCP Lanette Tamayo MD Admitting Physician Admitting Physician: Attending Physician: Jak Portillo MD Indications: Coronary artery disease Baseline Heart Rate: 104 Baseline Blood Pressure: Blood Pressure Systolic: 118 Blood Pressure Diastolic: 73 Baseline Vitals Vital Signs Date Time Temp Pulse Resp B/P (MAP) Pulse Ox O2 Delivery O2 Flow Rate FiO2 09/28/21 09:08 104 118/73 (88) Baseline EKG: Baseline EKG: RBBB Summary After explaining the procedure to the patient, he signed a consent and then brought to the stress nuclear laboratory. Patient received 0.4 mg Lexiscan for stress test, ECG, heart rate and blood pressure were monitored continuously. Resting and stress dose of radio tracer were injected, imaging was acquired and reviewed in short axis, horizontal long axis and vertical long axis views. TID: 1.13 SSS: 3 SDS: 1 EF: 47 1. Patient tolerated Lexiscan well 2. Baseline right bundle branch block persisted during test 3. Good radiotracer uptake with diaphragmatic attenuation, there is no significant ischemia or infarction on SPECT images 4. Normal left ventricular size, ejection fraction 47% JAK PORTILOL MD Sep 28, 2021 14:47
== END ==
LOC: CARD 07:45
PROVIDERS: ATTEND Internal Medicine Cardiovascular Disease
DX: I10 Essential (primary) hypertension (principal); I25.10 Atherosclerotic heart disease of native coronary artery without angina pectoris
CPT/HCPCS: 78452; 93017; A9502

== ENCOUNTER 2021-10-14 20:40 | Outpatient (CLI) | payer MEDICAID ==
[~2021-10-14 20:40] MED LIST changes: -CATHETER FLUSH 10 ML SYR IVP PRN; -NITR2.5C16 PO; +NITR2.5C17 PO; -REGADENOSON 0.4 MG/5 ML SYR (LEXISCAN) IV ONE
== END 2021-10-15 06:25 | disposition home or self-care (01) ==
LOC: SLEEP 20:40
PROVIDERS: ATTEND Internal Medicine Cardiovascular Disease
DX: G47.33 Obstructive sleep apnea (adult) (pediatric) (principal); I10 Essential (primary) hypertension; I25.10 Atherosclerotic heart disease of native coronary artery without angina pectoris; I65.23 Occlusion and stenosis of bilateral carotid arteries; E78.2 Mixed hyperlipidemia; J44.9 Chronic obstructive pulmonary disease, unspecified; E66.9 Obesity, unspecified; F17.210 Nicotine dependence, cigarettes, uncomplicated; Z68.38 Body mass index [BMI] 38.0-38.9, adult
CPT/HCPCS: 95811

== ENCOUNTER → 2021-12-14 | Outpatient (CLI) | payer MEDICAID ==
--- NOTE | 2021-12-14 13:48 | Diagnostic Imaging Report ---
INDICATION: BILATERAL LEG PAIN WEAKNESS COMPARISON: None. FINDINGS: Multiple radiographic views of the bilateral knees were obtained and show no fractures, dislocations, or other acute bony abnormalities. Joint spaces are well maintained throughout. The soft tissues appear unremarkable. No unexpected radiopaque foreign bodies are identified. IMPRESSION: Unremarkable radiographic exam of the bilateral knees. Dictated by: Dictated on workstation # [id number]
--- NOTE | 2021-12-14 13:49 | Diagnostic Imaging Report ---
INDICATION: Back pain. COMPARISON: None FINDINGS: Frontal and lateral views of the lumbar spine were obtained. Alignment and vertebral heights are maintained. There is no fracture or destructive process. Mild multilevel degenerative disease is noted in the lumbar spine. Limited views of the abdomen demonstrate nonobstructive bowel gas pattern. Note is made of moderate calcified aortic atherosclerosis. IMPRESSION: 1. No acute fracture or dislocation of the lumbar spine. 2. Mild multilevel degenerative changes. Dictated by: Dictated on workstation # [id number]
--- NOTE | 2021-12-14 13:52 | Diagnostic Imaging Report ---
INDICATION: Bilateral pelvic pain COMPARISON: None. FINDINGS: AP view of the pelvis and multiple dedicated radiographic views of each hip were obtained. There is no fracture, dislocation, bone destruction, or radiopaque foreign body. The visualized pelvic osseous structures and the SI joints demonstrate no acute fracture or dislocation. There is no bone destruction or radiopaque foreign body. The surrounding soft tissue structures are unremarkable. IMPRESSION: 1. Unremarkable radiographic exam of the pelvis and bilateral hips. Dictated by: Dictated on workstation # [id number]
== END ==
LOC: RAD 11:45
PROVIDERS: ATTEND Family Medicine
DX: M79.604 Pain in right leg (principal); M79.605 Pain in left leg; R53.1 Weakness; R10.2 Pelvic and perineal pain; M47.816 Spondylosis without myelopathy or radiculopathy, lumbar region
CPT/HCPCS: 72100; 73523

== ENCOUNTER 2022-02-09 15:20 | Emergency (ER) | payer MEDICAID ==
[~2022-02-09] VITALS: Ht 160 cm; Wt 101.0 kg
--- NOTE | 2022-02-09 16:54 | ED Neck-Back Pain/Injury ---
General Chief Complaint: Head/Cervical Problems Stated Complaint: NECK PAIN Nursing Triage Note: ARRIVED VIA EMS FROM HOME DEPOT WITH WAKING UP WITH LEFT SIDED NECK PAIN. STATES HE TOOK IBUPROFEN AT 1400 TODAY THAT HAS NOT HELPED. History of Present Illness Date Seen by Provider: Feb 09, 2022 Time Seen by Provider: 16:35 Initial Comments Patient is a 71-year-old male who presents to the emergency room with a chief complaint of left sided neck pain. Patient states he woke up with a little discomfort in his neck this morning. He states as he and his were out running errands he had progressive discomfort with inability to rotate his head towards the affected side, the left side. He describes point tenderness over the sternocleidomastoid muscle of the left side of the neck. He recalls having to move a washer and dryer yesterday. He denies direct trauma to the neck. He denies any radiation of the pain into the chest wall or down the left arm. No cervical spine pain, injury or tenderness. He denies recent illness such as fevers, chills, cough or shortness of breath he does have a history of COPD and wears oxygen at night. Still a smoker. He has taken ibuprofen for the pain. All other review of systems reviewed and negative except as stated Location: C-Spine (left sided) Timing/Duration: 4-6 Hours Severity: Moderate Pain/Injury Location: Neck Method of Injury: Other (moving washer and dryer yesterday) Modifying Factors: Improves With Immobilization Associated Symptoms: denies symptoms Allergies and Home Medications Allergies Coded Allergies: Sulfa (Sulfonamide Antibiotics) (Verified Allergy, Unknown, 06/12/18) Patient Home Medication List Home Medication List Reviewed: Yes Albuterol Sulfate (Ventolin Hfa) 1 Puff Puff, 2 PUFF INH Q4H, (Reported) Entered as Reported by: BELTRAN HAMILTON on 06/12/18 1008 Amoxicillin/Potassium Clav (Augmentin 875-125 Tablet) 1 Each Tablet, 1 EACH PO BID Prescribed by: JUVE KAY on 04/19/21 1908 Aspirin (Aspirin Ec 81 Mg) 81 Mg Tabec, 81 MG PO DAILY, (Reported) Entered as Reported by: ROSA SUERO on 06/16/11 1557 Azithromycin (Azithromycin) 250 Mg Tablet, 250 MG PO UD Prescribed by: HEMA MEDINA on 11/24/19 1744 Budesonide/Formoterol Fumarate (Symbicort 160-4.5 Mcg Inhaler) 10.2 Gm Hfa.aer.ad, 2 PUFF IH BID, (Reported) Entered as Reported by: BELTRAN HAMILTON on 06/12/18 1008 Bupropion HCl (Bupropion HCl) 75 Mg Tablet, 75 MG PO BID, (Reported) Entered as Reported by: VINCENT ROTH on 07/05/17 1154 Dulaglutide (Trulicity) 1.5 Mg/0.5 Ml Pen.injctr, 1.5 MG SQ WEEK, (Reported) Entered as Reported by: BELTRAN HAMILTON on 06/12/18 1006 Hydrocodone Bit/Acetaminophen (Lortab 5 Mg Tablet) 1 Tab Tab, 1 EACH PO Q4-6HR PRN for PAIN-MODERATE Prescribed by: JUVE KAY on 01/16/19 1426 Insulin Glargine,Hum.rec.anlog (Lantus) 100 Unit/1 Ml Vial, 80 UNIT SQ, (Reported) Entered as Reported by: BELTRAN HAMILTON on 06/12/18 100 Lisinopril (Lisinopril) 40 Mg Tablet, 40 MG PO DAILY, (Reported) Entered as Reported by: VINCENT ROTH on 07/05/17 1157 Loratadine (Loratadine) 10 Mg Tablet, 10 MG PO DAILY, (Reported) Entered as Reported by: VINCENT ROTH on 07/05/17 1156 Metformin HCl (Metformin HCl) 500 Mg Tablet, 500 MG PO BID, (Reported) Entered as Reported by: VINCENT ROTH on 07/05/17 1154 Metoprolol Tartrate (Metoprolol Tartrate) 100 Mg Tablet, 100 MG PO BID, (Reported) Entered as Reported by: VINCENT ROTH on 07/05/17 1153 Nitroglycerin (Nitroglycerin) 2.5 Mg Capsule.er, 2.5 MG PO for CHEST PAIN, (Reported) Entered as Reported by: BELTRAN HAMILTON on 06/12/18 1006 Omeprazole (Omeprazole) 20 Mg Tablet.dr, 20 MG PO DAILY, (Reported) Entered as Reported by: VINCENT ROTH on 07/05/17 1155 Pantoprazole Sodium (Protonix) 40 Mg Tablet.dr, 40 MG PO DAILY Prescribed by: MILIND SORIANO on 06/12/18 1042 Simvastatin (Simvastatin) 40 Mg Tablet, 40 MG PO HS, (Reported) Entered as Reported by: VINCENT ROTH on 07/05/17 1155 Tiotropium Boaz (Spiriva) 1 Inh Aerp, 1 INH IH DAILY, (Reported) Entered as Reported by: BELTRAN HAMILTON on 06/12/18 1007 Tobramycin (Tobramycin) 5 Ml Drops, 5 ML OP DAILY, (Reported) Entered as Reported by: BELTRAN HAMILTON on 06/12/18 1006 [Humulog] , 5 UNITS SUBMUCOS, (Reported) Entered as Reported by: BELTRAN HAMILTON on 06/12/18 1002 Review of Systems Constitutional: see HPI EENTM: no symptoms reported Respiratory: no symptoms reported Cardiovascular: no symptoms reported Gastrointestinal: no symptoms reported Musculoskeletal: neck pain Skin: no symptoms reported All Other Systems Reviewed Negative Unless Noted: Yes Past Smyusiy-Irsgdb-Ycnoxm Hx Patient Social History Tobacco Use?: Yes Smoking Status: Current Everyday Smoker Substance use?: No Alcohol Use?: No Immunizations Up To Date Tetanus Booster (TDap): Unknown PED Vaccines UTD: Yes Past Medical History Surgery/Hospitalization HX: PMH: DM, HTN SX: HERNIA REPAIR X2 Surgeries: Yes (HERNIA REPAIR, LUMBAR SURGERY) Abdominal, Cardiac Respiratory: Yes (USES INHALER) COPD Cardiac: Yes High Cholesterol, Hypertension Neurological: No Reproductive Disorders: No Gastrointestinal: Yes (S/P BILATERAL INGUINAL HERNIA REPAIR) Musculoskeletal: Yes (CHRONIC RIGHT KNEE PAIN ) Endocrine: Yes (OBESITY) Diabetes, Insulin dep Hearing Impairment: Denies Cancer: No Psychosocial: Yes Anxiety Integumentary: No Blood Disorders: No Family Medical History Diabetes, Hypertension Physical Exam Vital Signs Vital Signs - First Documented 02/09/22 15:24 Temp 36.7 Pulse 78 Resp 16 B/P (MAP) 130/70 (90) Pulse Ox 95 O2 Delivery Room Air Capillary Refill : Less Than 3 Seconds Height, Weight, BMI Height: 5'3.00" Weight: 260lbs. 1.0oz. 117.184987ug; 39.00 BMI Method:Stated General Appearance: No Apparent Distress, WD/WN HEENT: PERRL/EOMI Neck: Normal Inspection, Supple, Tender Lateral (left anterior neck over the mid point of the belly of the SCM on the left. No midline tenderness. no overlying erythema/rashes), Other (linited rotation of the head to the left due to pain - does not cause associated radicular symptoms) Cardiovascular: Regular Rate, Rhythm, Normal Peripheral Pulses Respiratory: Lungs Clear, Normal Breath Sounds, No Accessory Muscle Use, No Respiratory Distress Extremity: Normal Capillary Refill, Normal Inspection, Normal Range of Motion, Non Tender Neurologic/Psychiatric: Alert, Oriented x3, No Motor/Sensory Deficits, Normal Mood/Affect, Other (normal strength and sensation to the left upper extremity) Skin: Normal Color, Warm/Dry Progress/Results/Core Measures Results/Orders My Orders Orders - SEAMUS POLK MD Orphenadrine Inj (Ed Only) (Norflex Inje (02/09/22 17:00) Medications Given in ED Vital Signs/I&O 02/09/22 02/09/22 15:24 18:13 Temp 36.7 36.7 Pulse 78 72 Resp 16 18 B/P (MAP) 130/70 (90) 137/78 Pulse Ox 95 95 O2 Delivery Room Air Room Air Blood Pressure Mean: 90 Progress Progress Note : Time: 17:52 Progress Note Patient seen and evaluated, physical examination reveals point tenderness to the left mid sternocleidomastoid muscle. He has limited range of motion to the left. No radiating radicular symptoms or signs. No complaints of chest pain, shortness of breath. No cervical spine pain. Low clinical suspicion for acute coronary syndrome or radiculopathy from the cervical spine. Neurologically intact. Patient was treated with an injection of 1% lidocaine, 4 cc fanned over the sternocleidomastoid muscle on the left. Ultrasound guidance was used to facilitate injection. He was also given 60 mg of Norflex IM. After approximately 30 minutes the patient states he is feeling better has a little bit better range of motion. Still somewhat limited due to discomfort. Patient is advised to use [id number] Biofreeze and heating pads. He is advised to follow-up with his primary care physician for further management of this issue Departure Impression Primary Impression: Strain of sternocleidomastoid muscle Qualified Codes: S16.1XXA - Strain of muscle, fascia and tendon at neck level, initial encounter Disposition: 01 HOME, SELF-CARE Condition: Improved Departure-Patient Inst. Decision time for Depature: 16:54 Referrals: EPI IBRAHIM MD (PCP) Primary Care Physician NO,LOCAL PHYSICIAN (Family) Primary Care Physician Patient Instructions: Neck Pain, Cervical Sprain ED Add. Discharge Instructions: Use a heating pad to the sore area of your neck off and on for 20 minutes at a time over the next 1 to 2 days. You can also use [id number] muscle rubs and ointments for discomfort. Extra strength Tylenol 500 mg tablets, take 2 every 6-8 hours for pain. Please call your primary care physician tomorrow for a follow-up appointment next week. Return to the emergency room if the pain is worsening or if you develop chest pain, arm pain, weakness or any other emergent, concerning symptoms. Copy Copies To 1: EPI IBRAHIM MD, KATHRYN M MD Feb 09, 2022 16:54
[2022-02-09] MEDS ORDERED: ORPHENADRINE 60 MG/2 ML (NORFLEX) AMP (ED ONLY) IM ONE (17:00)
[2022-02-09 18:13] VITALS: BP 137/78
== END 2022-02-09 18:13 | disposition home or self-care (01) ==
LOC: EDUNIT# 15:20 → ER 15:23
DX: S16.1XXA Strain of muscle, fascia and tendon at neck level, initial encounter (principal); F17.200 Nicotine dependence, unspecified, uncomplicated; E11.9 Type 2 diabetes mellitus without complications; E66.9 Obesity, unspecified; Z68.39 Body mass index [BMI] 39.0-39.9, adult; Z79.4 Long term (current) use of insulin; Z28.310 Unvaccinated for COVID-19; X58.XXXA Exposure to other specified factors, initial encounter
CPT/HCPCS: 99284

== ENCOUNTER 2022-05-22 12:39 | Emergency (ER) | payer MEDICAID ==
[~2022-05-22] VITALS: Ht 160 cm; Wt 99.7 kg
[2022-05-22 12:57] VITALS: BP 164/88
[2022-05-22] MEDS ORDERED: TETRACAINE 0.5% OPHTH SOLN 4 ML BTL (SINGLE DOSE ONLY) OU ONE (13:15)
[2022-05-22] MEDS ORDERED: FLUORESCEIN (FLUOR-I-STRIPS) 1 MG STRP OU ONE (13:15)
--- NOTE | 2022-05-22 14:51 | ED General ---
General Chief Complaint: Eye Problems Stated Complaint: OBJECT IN RT EYE Nursing Triage Note: RIGHT EYE PAIN AFTER SOMETHING GOT INTO IT YESTERDAY WHILE WORKING ON A WHEEL CHAIR. Source of Information: Patient Exam Limitations: No Limitations History of Present Illness Date Seen by Provider: May 22, 2022 Time Seen by Provider: 12:42 Initial Comments 72-year-old male coming in after he was working on a wheelchair yesterday and felt like something got stuck in his right eye. This occurred last night, he states it was very darryl in the area. Having persistent pain, worse with blinking. Denies any blurry vision, fever, or any other concerns. His tetanus is up-to-date within the past 10 years Allergies and Home Medications Allergies Coded Allergies: Sulfa (Sulfonamide Antibiotics) (Verified Allergy, Unknown, 06/12/18) Patient Home Medication List Home Medication List Reviewed: Yes Albuterol Sulfate (Ventolin Hfa) 1 Puff Puff, 2 PUFF INH Q4H, (Reported) Entered as Reported by: BELTRAN HAMILTON on 06/12/18 1008 Amoxicillin/Potassium Clav (Augmentin 875-125 Tablet) 1 Each Tablet, 1 EACH PO BID Prescribed by: UJVE KAY on 04/19/21 1908 Aspirin (Aspirin Ec 81 Mg) 81 Mg Tabec, 81 MG PO DAILY, (Reported) Entered as Reported by: ROSA SUERO on 06/16/11 1557 Azithromycin (Azithromycin) 250 Mg Tablet, 250 MG PO UD Prescribed by: HEMA MEDINA on 11/24/19 1744 Budesonide/Formoterol Fumarate (Symbicort 160-4.5 Mcg Inhaler) 10.2 Gm Hfa.aer.ad, 2 PUFF IH BID, (Reported) Entered as Reported by: BELTRAN HAMILTON on 06/12/18 1008 Bupropion HCl (Bupropion HCl) 75 Mg Tablet, 75 MG PO BID, (Reported) Entered as Reported by: VINCENT ROTH on 07/05/17 1154 Dulaglutide (Trulicity) 1.5 Mg/0.5 Ml Pen.injctr, 1.5 MG SQ WEEK, (Reported) Entered as Reported by: BELTRAN HAMILTON on 06/12/18 1006 Hydrocodone Bit/Acetaminophen (Lortab 5 Mg Tablet) 1 Tab Tab, 1 EACH PO Q4-6HR PRN for PAIN-MODERATE Prescribed by: JUVE KAY on 01/16/19 1426 Insulin Glargine,Hum.rec.anlog (Lantus) 100 Unit/1 Ml Vial, 80 UNIT SQ, (Reported) Entered as Reported by: BELTRAN HAMILTON on 06/12/18 1003 Lisinopril (Lisinopril) 40 Mg Tablet, 40 MG PO DAILY, (Reported) Entered as Reported by: VINCENT ROTH on 07/05/17 1157 Loratadine (Loratadine) 10 Mg Tablet, 10 MG PO DAILY, (Reported) Entered as Reported by: VINCENT ROTH on 07/05/17 1156 Metformin HCl (Metformin HCl) 500 Mg Tablet, 500 MG PO BID, (Reported) Entered as Reported by: VINCENT ROTH on 07/05/17 1154 Metoprolol Tartrate (Metoprolol Tartrate) 100 Mg Tablet, 100 MG PO BID, (Reported) Entered as Reported by: VINCENT ROTH on 07/05/17 1153 Nitroglycerin (Nitroglycerin) 2.5 Mg Capsule.er, 2.5 MG PO for CHEST PAIN, (Reported) Entered as Reported by: BELTRAN HAMILTON on 06/12/18 1006 Omeprazole (Omeprazole) 20 Mg Tablet.dr, 20 MG PO DAILY, (Reported) Entered as Reported by: VINCENT ROTH on 07/05/17 1155 Pantoprazole Sodium (Protonix) 40 Mg Tablet.dr, 40 MG PO DAILY Prescribed by: MILIND SORIANO on 06/12/18 1042 Simvastatin (Simvastatin) 40 Mg Tablet, 40 MG PO HS, (Reported) Entered as Reported by: VINCENT ROTH on 07/05/17 1155 Tiotropium [place] (Spiriva) 1 Inh Aerp, 1 INH IH DAILY, (Reported) Entered as Reported by: BELTRAN HAMILTON on 06/12/18 1007 Tobramycin (Tobramycin) 5 Ml Drops, 5 ML OP DAILY, (Reported) Entered as Reported by: BELTRAN HAMILTON on 06/12/18 1006 [Humulog] , 5 UNITS SUBMUCOS, (Reported) Entered as Reported by: BELTRAN HAMILTON on 06/12/18 1002 Review of Systems Review of Systems Constitutional: No fever EENTM: see HPI Respiratory: no symptoms reported Cardiovascular: no symptoms reported Past Xkarcln-Kzyhwd-Gyfqet Hx Patient Social History Tobacco Use?: Yes Tobacco type used: Cigarettes Smoking Status: Current Everyday Smoker Substance use?: No Alcohol Use?: No Immunizations Up To Date Tetanus Booster (TDap): Unknown PED Vaccines UTD: Yes Past Medical History Surgery/Hospitalization HX: PMH: DM, HTN SX: HERNIA REPAIR X2 Surgeries: Yes (HERNIA REPAIR, LUMBAR SURGERY) Abdominal, Cardiac Respiratory: Yes (USES INHALER) COPD Cardiac: Yes High Cholesterol, Hypertension Neurological: No Reproductive Disorders: No Gastrointestinal: Yes (S/P BILATERAL INGUINAL HERNIA REPAIR) Musculoskeletal: Yes (CHRONIC RIGHT KNEE PAIN ) Endocrine: Yes (OBESITY) Diabetes, Insulin dep Hearing Impairment: Denies Cancer: No Psychosocial: Yes Anxiety Integumentary: No Blood Disorders: No Family Medical History Diabetes, Hypertension Physical Exam Vital Signs Vital Signs - First Documented 05/22/22 12:57 Temp 36.9 Pulse 83 Resp 16 B/P (MAP) 164/88 (113) Pulse Ox 97 O2 Delivery Room Air Capillary Refill : Less Than 3 Seconds Height, Weight, BMI Height: 5'3.00" Weight: 260lbs. 1.0oz. [id number]; 38.00 BMI Method:Stated General Appearance: No Apparent Distress, WD/WN Eyes: Right Eye Other (Foreign body with a small black speck embedded in his upper eyelid when its inverted, fluorescein exam negative for any abrasion) HEENT: PERRL/EOMI, Normal ENT Inspection, Pharynx Normal Neck: Full Range of Motion, Normal Inspection, Non Tender, Supple Respiratory: Chest Non Tender, Lungs Clear, Normal Breath Sounds Cardiovascular: Regular Rate, Rhythm, Normal Peripheral Pulses Gastrointestinal: Normal Bowel Sounds, Non Tender, Soft Back: Normal Inspection Extremity: Normal Capillary Refill Neurologic/Psychiatric: Alert, Oriented x3, No Motor/Sensory Deficits, Normal Mood/Affect Skin: Normal Color, Warm/Dry Procedures/Interventions Eye : Location: right eye Eye FB Removal: removal w/ cotton swab Eye Irrigated w/ Saline (ccs): 100 Anesthesia (gtts): Tetracaine Progress/Procedure Conclusion Saline used to flush the eye, eyelid was inverted with a small black speck foreign body. Fluorescein exam after with no corneal abrasion, patient tolerated procedure well with complete resolution of pain Progress/Results/Core Measures Suspected Sepsis SIRS Temperature: Pulse: 83 Respiratory Rate: 16 Blood Pressure 164 /88 Mean: 113 Results/Orders My Orders Orders - TOMMIE SCHMITT MD Tetracaine 0.5% Ophth Sarah Sdv (Tetracai (05/22/22 13:15) Fluorescein Strips ([id number]) (05/22/22 13:15) Trimethoprim/Polymyx Ophth Sarah (Polytrim (05/22/22 15:00) Medications Given in ED Current Medications Medications Dose Ordered Sig/Olu Route Start Time Stop Time Status Last Admin Dose Admin Fluorescein Sodium 1 mg ONCE ONCE OU 05/22/22 13:15 05/22/22 13:16 DC 05/22/22 14:20 1 MG Tetracaine HCl 4 ml ONCE ONCE OU 05/22/22 13:15 05/22/22 13:16 DC 05/22/22 14:20 4 ML Vital Signs/I&O 05/22/22 12:57 Temp 36.9 Pulse 83 Resp 16 B/P (MAP) 164/88 (113) Pulse Ox 97 O2 Delivery Room Air Capillary Refill : Less Than 3 Seconds Blood Pressure Mean: 113 Progress Note : Progress Note 72-year-old male presenting for foreign body sensation to his right eye. ABCs were intact and vitals were stable on presentation. Like to flush the right eye, everted his right upper eyelid, and there was a small black foreign body much less than a millimeter. I removed it with a cotton swab. He had complete resolution of symptoms after this. I then did a fluorescein exam with tetracaine with no corneal abrasion. We will give him antibiotics that he will go home with in his eye. I believe he stable for discharge with outpatient follow-up. He was sent home with strict return precautions Departure Impression Primary Impression: Foreign body of eyelid, right Disposition: HOME, SELF-CARE Condition: Stable Departure-Patient Inst. Decision time for Depature: 14:50 Referrals: DELORIS VERA MD (PCP/Family) Primary Care Physician Patient Instructions: Foreign Body in Eye (DC) Add. Discharge Instructions: The SPECT that was in your eye has been removed. You will use the eyedrops, 2 drops in the right eye 3 times a day for the next week. Take ibuprofen or Tylenol as needed for pain. Follow-up with the eye doctor in [facility] if things start to be worse again. TOMMIE SCHMITT MD May 22, 2022 14:50
[2022-05-22] MEDS ORDERED: POLY/TRIMETH (POLYTRIM) OPHTH 10 ML BTL OU ONE (15:00)
== END 2022-05-22 15:07 | disposition home or self-care (01) ==
LOC: EDUNIT# 12:39 → ER 12:41
DX: T15.11XA Foreign body in conjunctival sac, right eye, initial encounter (principal); E66.9 Obesity, unspecified; F17.210 Nicotine dependence, cigarettes, uncomplicated; Z68.38 Body mass index [BMI] 38.0-38.9, adult; Z28.310 Unvaccinated for COVID-19; W22.8XXA Striking against or struck by other objects, initial encounter; Y92.59 Other trade areas as the place of occurrence of the external cause; Y99.0 Civilian activity done for income or pay
CPT/HCPCS: 99281

== ENCOUNTER → 2022-07-28 | Outpatient (CLI) | payer MEDICAID ==
--- NOTE | 2022-07-28 18:16 | Diagnostic Imaging Report ---
EXAMINATION: Lumbar spine radiographs, 4 views including flexion and extension. COMPARISON: Lumbar spine radiographs December 14, 2021. HISTORY: 72-year-old male, difficulty walking. Low back pain. FINDINGS: There are five lumbar-type vertebral bodies. The alignment of the lumbar spine is unremarkable. There is no abnormal motion with flexion or extension. The lumbar disc heights are well preserved. There are mild endplate degenerative related changes. There is no identified compression deformity or fracture. There are vascular calcifications. The facet articulations are grossly unremarkable. Unremarkable appearance of the sacroiliac joints. IMPRESSION: 1. Multilevel mild disc degenerative changes of the lumbar spine. 2. No abnormal motion with flexion or extension. Dictated by: Dictated on workstation # [id number]
== END ==
LOC: RAD 13:34
PROVIDERS: ATTEND Family Medicine
DX: M51.16 Intervertebral disc disorders with radiculopathy, lumbar region (principal)
CPT/HCPCS: 72110

== ENCOUNTER → 2023-02-06 | Outpatient (RCR) | payer MEDICAID ==
[~2023-02-06] MED LIST changes: -TBR.3OP51 OP; +TOBR5DRO11 OP
== END | disposition home or self-care (01) ==
PROVIDERS: ATTEND Family Medicine
DX: M51.36 Other intervertebral disc degeneration, lumbar region (principal); I10 Essential (primary) hypertension; E11.9 Type 2 diabetes mellitus without complications; F17.200 Nicotine dependence, unspecified, uncomplicated

== ENCOUNTER 2023-03-08 12:54 | Outpatient (RCR) | payer MEDICAID | END 2023-03-08 16:20 | disposition home or self-care (01) | PROVIDERS: ATTEND Family Medicine | DX: M51.36 Other intervertebral disc degeneration, lumbar region (principal); I10 Essential (primary) hypertension; E11.9 Type 2 diabetes mellitus without complications; F17.200 Nicotine dependence, unspecified, uncomplicated ==

== ENCOUNTER 2023-03-15 10:34 | Emergency (ER) | payer MEDICAID ==
[~2023-03-15] VITALS: Ht 160 cm; Wt 87.0 kg
[2023-03-15 11:25] VITALS: BP 125/85
--- NOTE | 2023-03-15 11:41 | ED Upper Extremity ---
General Chief Complaint: Upper Extremity Stated Complaint: PASSING OUT | PAIN IN LT SHOULDER | SPIDER BITE Nursing Triage Note: ARRIVED VIA AMB WITH COMPLAINTS OF LEFT SHOULDER PAIN X2-3 WEEKS THAT KEEPS GETTING WORSE. Source: patient Exam Limitations: no limitations History of Present Illness Date Seen by Provider: Mar 15, 2023 Time Seen by Provider: 11:38 Initial Comments Patient is a 72-year-old male who presents ED with left posterior shoulder pain. Shoulder pain started 2 to 3 weeks ago. Patient reports that sharp stabbing pain to his left scapula. This only occurs with movement. He states the pain got worse over the past few days. Patient states he suffered a spider bite to the left sided scalp. States this occurred 2 to 3 weeks ago. He states the abscess was lanced started on doxycycline and this has improved. He denies any of any red streaking, fever, chills, body aches, chest pain, shortness of breath or cough. Patient has been taking baby aspirin without much improvement. Denies of any falls. Denies history of arthritis in his left shoulder. Allergies and Home Medications Allergies Coded Allergies: Sulfa (Sulfonamide Antibiotics) (Verified Allergy, Unknown, 06/12/18) Patient Home Medication List Home Medication List Reviewed: Yes Albuterol Sulfate (Ventolin Hfa) 1 Puff Puff, 2 PUFF INH Q4H, (Reported) Entered as Reported by: BELTRAN HAMILTON on 06/12/18 1008 Amoxicillin/Potassium Clav (Augmentin 875-125 Tablet) 1 Each Tablet, 1 EACH PO BID Prescribed by: JUVE KAY on 04/19/21 1908 Aspirin (Aspirin Ec 81 Mg) 81 Mg Tabec, 81 MG PO DAILY, (Reported) Entered as Reported by: ROSA SUERO on 06/16/11 1557 Azithromycin (Azithromycin) 250 Mg Tablet, 250 MG PO UD Prescribed by: HEMA MEDINA on 11/24/19 1744 Budesonide/Formoterol Fumarate (Symbicort 160-4.5 Mcg Inhaler) 10.2 Gm Hfa.aer.ad, 2 PUFF IH BID, (Reported) Entered as Reported by: BELTRAN HAMILTON on 06/12/18 1008 Bupropion HCl (Bupropion HCl) 75 Mg Tablet, 75 MG PO BID, (Reported) Entered as Reported by: VINCENT ROTH on 07/05/17 1154 Dulaglutide (Trulicity) 1.5 Mg/0.5 Ml Pen.injctr, 1.5 MG SQ WEEK, (Reported) Entered as Reported by: BELTRAN HAMILTON on 06/12/18 1006 Hydrocodone Bit/Acetaminophen (Lortab 5 Mg Tablet) 1 Tab Tab, 1 EACH PO Q4-6HR PRN for PAIN-MODERATE Prescribed by: JUVE KAY on 01/16/19 1426 Hydrocodone/Acetaminophen (Hydrocodone-Acetamin 5-325 mg) 5 Mg-325 Mg Tablet, 1 TAB PO Q4H PRN for PAIN-MODERATE (5-7) Prescribed by: LUCILLE TINEO on 03/15/23 1144 Insulin Glargine,Hum.rec.anlog (Lantus) 100 Unit/1 Ml Vial, 80 UNIT SQ, (Reported) Entered as Reported by: BELTRAN HAMILTON on 06/12/18 100 Lisinopril (Lisinopril) 40 Mg Tablet, 40 MG PO DAILY, (Reported) Entered as Reported by: VINCENT ROTH on 07/05/17 1157 Loratadine (Loratadine) 10 Mg Tablet, 10 MG PO DAILY, (Reported) Entered as Reported by: VINCENT ROTH on 07/05/17 1156 Metformin HCl (Metformin HCl) 500 Mg Tablet, 500 MG PO BID, (Reported) Entered as Reported by: VINCENT ROTH on 07/05/17 1154 Methocarbamol (Methocarbamol) 500 Mg Tablet, 500 MG PO Q6-8HR Prescribed by: LUCILLE TINEO on 03/15/23 1144 Metoprolol Tartrate (Metoprolol Tartrate) 100 Mg Tablet, 100 MG PO BID, (Reported) Entered as Reported by: VINCENT ROTH on 07/05/17 1153 Nitroglycerin (Nitroglycerin) 2.5 Mg Capsule.er, 2.5 MG PO for CHEST PAIN, (Reported) Entered as Reported by: BELTRAN HAMILTON on 06/12/18 100 Omeprazole (Omeprazole) 20 Mg Tablet.dr, 20 MG PO DAILY, (Reported) Entered as Reported by: VINCENT ROTH on 07/05/17 1155 Pantoprazole Sodium (Protonix) 40 Mg Tablet.dr, 40 MG PO DAILY Prescribed by: MILIND SORIANO on 06/12/18 1042 Simvastatin (Simvastatin) 40 Mg Tablet, 40 MG PO HS, (Reported) Entered as Reported by: VINCENT ROTH on 07/05/17 1155 Tiotropium [place] (Spiriva) 1 Inh Aerp, 1 INH IH DAILY, (Reported) Entered as Reported by: BELTRAN HAMILTON on 06/12/18 1007 Tobramycin (Tobramycin) 5 Ml Drops, 5 ML OP DAILY, (Reported) Entered as Reported by: BELTRAN HAMILTON on 06/12/18 1006 [Humulog] , 5 UNITS SUBMUCOS, (Reported) Entered as Reported by: BELTRAN HAMILTON on 06/12/18 1002 Review of Systems Constitutional: No chills EENTM: No ear pain, No blurred vision, No double vision Respiratory: No cough Cardiovascular: No chest pain Gastrointestinal: No abdominal pain, No diarrhea, No vomiting Genitourinary: No discharge Musculoskeletal: No back pain; joint pain, muscle pain, muscle stiffness Skin: No change in color, No change in hair/nails All Other Systems Reviewed Negative Unless Noted: Yes Past Uaddqzt-Amnsun-Gkjiki Hx Patient Social History Tobacco Use?: Yes Substance use?: No Additional substance use comme: PAST HX Alcohol Use?: No Immunizations Up To Date Tetanus Booster (TDap): Unknown PED Vaccines UTD: Yes Past Medical History Surgery/Hospitalization HX: PMH: DM, HTN SX: HERNIA REPAIR X2 Surgeries: Yes (HERNIA REPAIR, LUMBAR SURGERY) Abdominal, Cardiac Respiratory: Yes (USES INHALER) COPD Cardiac: Yes High Cholesterol, Hypertension Neurological: No Reproductive Disorders: No Gastrointestinal: Yes (S/P BILATERAL INGUINAL HERNIA REPAIR) Musculoskeletal: Yes (CHRONIC RIGHT KNEE PAIN ) Endocrine: Yes (OBESITY) Diabetes, Insulin dep Hearing Impairment: Denies Cancer: No Psychosocial: Yes Anxiety Integumentary: No Blood Disorders: No Family Medical History Diabetes, Hypertension Physical Exam Vital Signs Vital Signs - First Documented 03/15/23 11:25 Temp 36.3 Pulse 90 Resp 16 B/P (MAP) 125/85 (98) Pulse Ox 97 O2 Delivery Room Air Capillary Refill : Less Than 3 Seconds Height, Weight, BMI Height: 5'3.00" Weight: 260lbs. 1.0oz. 117.095876yy; 33.00 BMI Method:Stated General Appearance: WD/WN, no apparent distress HEENT: PERRL/EOMI, normal ENT inspection, TMs normal, pharynx normal, other (Small area of crusting localized redness to the left lower lateral scalp. No tenderness to palpate. No erythematous streaking.) Neck: non-tender, full range of motion, supple Cardiovascular: regular rate, rhythm, no edema, no gallop, no JVD Respiratory: chest non-tender, lungs clear, normal breath sounds, no res piratory distress, no accessory muscle use Gastrointestinal: normal bowel sounds, non tender, soft Back: no CVA tenderness, no vertebral tenderness Shoulder: pain, soft tissue tenderness (Tenderness to palpate overlying the left scapula. No hematoma, fluctuant mass. Limited passive range of motion of left shoulder. Neurovascular intact. Asset Protection Officer strength 5-5. Flexion extension of the left elbow 5 out of 5.) Elbow/Forearm: normal inspection, non-tender, no evidence of injury, Left Wrist: Yes normal inspection, Yes non-tender, Yes no evidence of injury (Left) Hand: normal inspection, non-tender, no evidence of injury, Left Neurologic/Psychiatric: cat skinner II-XII nml as tested, no motor/sensory deficits, alert, normal mood/affect, oriented x 3 Skin: other (Healing lesion to the left lateral lower scalp. Localized redness.) Progress/Results/Core Measures Results/Orders My Orders Orders - TOMMIE DEVLIN Orphenadrine Inj (Ed Only) (Orphenadrine (03/15/23 11:45) Ketorolac Injection (Ketorolac Injection (03/15/23 11:45) Shoulder, Left, 3 Views (03/15/23 11:41) Medications Given in ED Current Medications Medications Dose Ordered Sig/Olu Route Start Time Stop Time Status Last Admin Dose Admin Ketorolac Tromethamine 30 mg ONCE ONCE IVP 03/15/23 11:45 03/15/23 11:46 DC 03/15/23 11:49 30 MG Orphenadrine Citrate 60 mg ONCE ONCE IM 03/15/23 11:45 03/15/23 11:46 DC 03/15/23 11:49 60 MG Vital Signs/I&O 03/15/23 11:25 Temp 36.3 Pulse 90 Resp 16 B/P (MAP) 125/85 (98) Pulse Ox 97 O2 Delivery Room Air Blood Pressure Mean: 98 Departure Communication (PCP) Reviewed previous ER visits, H&P, lab testing. Patient with left scapula pain. Patient suffered a spider bite to the left lateral scalp was treated with doxycycline had this area lanced. He states that his appears to be improving. There is no obvious function of mass on exam. There is no erythematous streaking. There is no obvious abscess to the left scapula, back or redness and swelling suggesting infectious related. No thoracic or lumbar midline tenderness. Denies of any falls. Pain with movement and tender to palpate along the left posterior scapula. Neurovascular intact. X-ray was obtained of the left shoulder which did not show any acute fracture, lesion. Did receive a Toradol and Norflex with improvement. Suspect that this is more muscular. Other etiologies would be shoulder sprain, rotator cuff injury but patient did not have any specific injury suggesting this. Recommend stretching, range of motion exercises further evaluation with your primary care physician. Would likely benefit with a trigger point but he did not want to proceed at this time. Follow-up your primary care physician in the next week. If any worsening symptoms return back to ED. Impression Primary Impression: Left shoulder pain Disposition: 01 HOME, SELF-CARE Condition: Stable Departure-Patient Inst. Decision time for Depature: 11:43 Referrals: DELORIS VERA MD (PCP) Primary Care Physician DYANA SOTOMAYOR MD Patient Instructions: Shoulder Pain ED Scripts Methocarbamol (Methocarbamol) 500 Mg Tablet 500 MG PO Q6-8HR for Back Pain, #16 TAB Prov: TOMMIE DEVLIN 03/15/23 Hydrocodone/Acetaminophen (Hydrocodone-Acetamin 5-325 mg) 5 Mg-325 Mg Tablet 1 TAB PO Q4H PRN for PAIN-MODERATE (5-7), #6 TAB Prov: TOMMIE DEVLIN 03/15/23 TOMMIE DEVLIN Mar 15, 2023 11:41
[2023-03-15] MEDS ORDERED: ACHD5005 PO (11:44)
[2023-03-15] MEDS ORDERED: METH-731 PO (11:44)
[2023-03-15] MEDS ORDERED: KETOROLAC INJ 30 MG/ML VIAL IVP ONE (11:45)
[2023-03-15] MEDS ORDERED: ORPHENADRINE 60 MG/2 ML AMP (ED ONLY) IM ONE (11:45)
--- NOTE | 2023-03-15 12:44 | Diagnostic Imaging Report ---
EXAMINATION: Left shoulder radiograph. EXAM DATE: 03/15/2023 12:04 p.m. COMPARISON: 01/16/2019. HISTORY: Left scapula pain. TECHNIQUE: Three views. FINDINGS: There is no acute fracture, dislocation, or destructive osseous process. The joint spaces are normal. The soft tissues are normal. IMPRESSION: 1. No acute osseous abnormality. Dictated by: Dictated on workstation # [id number]
== END 2023-03-15 12:23 | disposition home or self-care (01) ==
LOC: EDUNIT# 10:34 → ER 10:36
DX: M25.512 Pain in left shoulder (principal); E11.9 Type 2 diabetes mellitus without complications; E66.9 Obesity, unspecified; Z68.33 Body mass index [BMI] 33.0-33.9, adult; Z79.4 Long term (current) use of insulin
CPT/HCPCS: 73030; 96372; 96374